=== PATIENT | female | born 1945 | race Caucasian/White ===

== ENCOUNTER 2017-01-10 13:06 | Inpatient (IN) | payer MEDICARE, OTHER ==
[2017-01-10] VITALS (7 sets, daily range): BP systolic 130–147; BP diastolic 77–89; PULSE 112–134; RESP 24–29; TEMP 98.2; O2SAT 92–98
[~2017-01-10] VITALS: Ht 149.9 cm; Wt 58.6 kg
[~2017-01-10 13:06] MED LIST: AMLO5TAB96 PO; ENAL5TAB PO; HYDR10TA16 PO; METH10TA PO; NAPR550 PO; NEUR400C PO; OMEP20CA5 PO; POTA10IN2 PO; SIMV20 PO; VENTAER INH; XANA0.5T PO; ZOLO50TA PO; [UNRECOGNIZED DRUG - CODE] PO
--- NOTE | 2017-01-10 13:39 | PD ---
HPI Chief Complaint: SOB Time Seen by Provider: 13:32 Travel History International Travel<30 days: No Contact w/Intl Traveler<30days: No Traveled to known affect area: No History of Present Illness HPI PT IS A HOSPICE PATIENT, SENT IN DUE TO SOB, NORMALLY ON 2L NC AT HOME. DENIED ANY PROD SPUTUM BUT WAS POSITIVE FOR COUGH, TROUBLE BREATHING SO HEAVY OVER LAST 2 DAYS THAT SHE CAN'T EVEN HOLD A CONVERSATION WITHOUT BEING SOB PFSH Past Medical History Arthritis: Yes Blood Disorders: No Anxiety: Yes Depression: Yes Cancer: No High Cholesterol: Yes Endocrine: No Genitourinary: No Hiatal Hernia: Yes Hypertension: Yes Immune Disorder: No Musculoskeletal: Yes (CHRONIC L HIP PAIN) Neurologic: No Respiratory: Yes (PNEUMONIA) Pneumonia: Yes Menopausal: Yes Past Surgical History Abdominal Surgery: Yes (tumor removal) AICD: No Gynecologic Surgery: Yes (hysterectomy) Hysterectomy: Yes Joint Replacement: No Pacemaker: No Social History Alcohol Use: No Tobacco Use: Yes (06/22 PPD) Substance Use: No Allergies-Medications (Allergen,Severity, Reaction): Coded Allergies: Penicillin (Verified Allergy, Severe, 01/10/17) Quinine (Verified Allergy, Severe, ITCHING, 01/10/17) Ultram (Verified Allergy, Severe, Rash, 01/10/17) Reported Meds & Prescriptions Reported Meds & Active Scripts Active Reported Prednisone 10 Mg Tab 10 Mg PO TID Temazepam 15 Mg Cap 15 Mg PO HS PRN Sertraline (Sertraline HCl) 50 Mg Tab 50 Mg PO DAILY Senna-Tabs (Sennosides) 8.6 Mg Tab 8.6 Mg PO BID Risperidone 0.5 Mg Tab 0.5 Mg PO Q12HR Hydrocodone-Acetaminophen 10-325 mg Tab 1 Tab PO Q6H PRN Gabapentin 300 Mg Cap 300 Mg PO TID Furosemide 20 Mg Tab 20 Mg PO DAILY Flexeril (Cyclobenzaprine HCl) 10 Mg Tab 10 Mg PO TID Amlodipine (Amlodipine Besylate) 5 Mg Tab 5 Mg PO DAILY Alprazolam 1 Mg Tab 1 Mg PO Q8H PRN Ventolin Hfa 18 GM Inh (Albuterol Sulfate) 90 Mcg/Act Aer 2 Puff INH Q6H PRN Albuterol Neb (Albuterol Sulfate) 2.5 Mg/3 Ml Neb 2.5 Mg NEB Q4HR NEB While awake Review of Systems Except as stated in HPI: all other systems reviewed are Neg Respiratory: Positive: Cough, Shortness of Breath Physical Exam Exam Limitations: Clinical Condition Narrative GENERAL: SKIN: Warm and dry. HEAD: Atraumatic. Normocephalic. EYES: Pupils equal and round. No scleral icterus. No injection or drainage. ENT: No nasal bleeding or discharge. Mucous membranes pink and moist. NECK: Trachea midline. No JVD. CARDIOVASCULAR: TACHYCARDIC WITH REGULAR RHYTHM RESPIRATORY: ACCESSORY MUSCLE USE, TACHYPNEIC, WHEEZING, DECREASED TV, GASTROINTESTINAL: Abdomen soft, non-tender, nondistended. Hepatic and splenic margins not palpable. MUSCULOSKELETAL: Extremities without clubbing, cyanosis, or edema. No obvious deformities. NEUROLOGICAL: Awake and alert. No obvious cranial nerve deficits. Motor grossly within normal limits. Five out of 5 muscle strength in the arms and legs. Normal speech. PSYCHIATRIC: Appropriate mood and affect; insight and judgment normal. Data Data Last Documented VS Vital Signs Date Time Temp Pulse Resp B/P Pulse Ox O2 Delivery O2 Flow Rate FiO2 01/10/17 15:32 128 29 135/84 95 Nasal Cannula 5 01/10/17 13:24 98.2 Orders Complete Blood Count With Diff (01/10/17 13:33) Comprehensive Metabolic Panel (01/10/17 13:33) B-Type Natriuretic Peptide (01/10/17 13:33) Act Partial Throm Time (Ptt) (01/10/17 13:33) Prothrombin Time / Inr (Pt) (01/10/17 13:33) Ckmb (Isoenzyme) Profile (01/10/17 13:33) Troponin I (01/10/17 13:33) Urinalysis - C+S If Indicated (01/10/17 13:33) Influenzae A/B Antigen (01/10/17 13:33) Blood Culture (01/10/17 13:33) Iv Access Insert/Monitor (01/10/17 13:33) Electrocardiogram (01/10/17 13:33) Ecg Monitoring (01/10/17 13:33) Oximetry (01/10/17 13:33) Oxygen Administration (01/10/17 13:33) Chest, Single Ap (01/10/17 13:33) Sodium Chloride 0.9% Flush (Ns Flush) (01/10/17 13:45) Methylprednisolone So Succ Inj (Solumedr (01/10/17 13:45) Albuterol Neb (Albuterol Neb) (01/10/17 13:45) Magnesium Sulfate 1 Gm Premix (Magnesium (01/10/17 13:45) Azithromycin Inj (Zithromax Inj) (01/10/17 13:45) Arterial Blood Gas (Abg) (01/10/17 14:13) Levofloxacin 500 Mg Premix Inj (Levaquin (01/10/17 15:15) Admit Order (Ed Use Only) (01/10/17 15:45) Labs Laboratory Tests Test 01/10/17 01/10/17 13:50 14:18 White Blood Count 23.1 TH/MM3 Red Blood Count 4.65 MIL/MM3 Hemoglobin 12.3 GM/DL Hematocrit 38.9 % Mean Corpuscular Volume 83.6 FL Mean Corpuscular Hemoglobin 26.4 PG Mean Corpuscular Hemoglobin 31.7 % Concent Red Cell Distribution Width 18.4 % Platelet Count 253 TH/MM3 Mean Platelet Volume 7.4 FL Neutrophils (%) (Auto) 90.4 % Lymphocytes (%) (Auto) 4.3 % Monocytes (%) (Auto) 5.1 % Eosinophils (%) (Auto) 0.0 % Basophils (%) (Auto) 0.2 % Neutrophils # (Auto) 20.8 TH/MM3 Lymphocytes # (Auto) 1.0 TH/MM3 Monocytes # (Auto) 1.2 TH/MM3 Eosinophils # (Auto) 0.0 TH/MM3 Basophils # (Auto) 0.0 TH/MM3 CBC Comment AUTO DIFF Differential Total Cells 100 Counted Neutrophils % (Manual) 81 % Band Neutrophils % 8 % Lymphocytes % 2 % Monocytes % 7 % Neutrophils # (Manual) 21.0 TH/MM3 Metamyelocytes 2 % Differential Comment FINAL DIFF MANUAL Dohle Bodies PRESENT Platelet Estimate NORMAL Platelet Morphology Comment NORMAL Ovalocytes 1+ Prothrombin Time 10.4 SEC Prothromb Time International 0.9 RATIO Ratio Activated Partial 20.3 SEC Thromboplast Time Sodium Level 141 MEQ/L Potassium Level 4.1 MEQ/L Chloride Level 104 MEQ/L Carbon Dioxide Level 23.9 MEQ/L Anion Gap 13 MEQ/L Blood Urea Nitrogen 44 MG/DL Creatinine 1.24 MG/DL Estimat Glomerular Filtration 43 ML/MIN Rate Random Glucose 88 MG/DL Calcium Level 8.9 MG/DL Total Bilirubin 0.6 MG/DL Aspartate Amino Transf 34 U/L (AST/SGOT) Alanine Aminotransferase 26 U/L (ALT/SGPT) Alkaline Phosphatase 79 U/L Total Creatine Kinase 57 U/L Troponin I 0.02 NG/ML B-Type Natriuretic Peptide 40 PG/ML Total Protein 7.5 GM/DL Albumin 3.2 GM/DL Blood Gas Puncture Site RT RADIAL Blood Gas Patient Temperature 98.6 Blood Gas HCO3 25 mmol/L Blood Gas Base Excess 1.8 mmol/L Blood Gas Oxygen Saturation 92 % Arterial Blood pH 7.47 Arterial Blood Partial 35 mmHg Pressure CO2 Arterial Blood Partial 67 mmHG Pressure O2 Arterial Blood Oxygen Content 16.0 Vol % Arterial Blood 1.6 % Carboxyhemoglobin Arterial Blood Methemoglobin 1.1 % Blood Gas Hemoglobin 12.3 G/DL Oxygen Delivery Device NASAL CANNULA Blood Gas Liter Flow 4 L/M MDM Medical Decision Making Medical Screen Exam Complete: Yes Emergency Medical Condition: Yes Medical Record Reviewed: Yes Interpretation(s) SINUS TACH 135, J POINT ELEVATION, T WAVE INVERSION ON I/AVL....AB.47/35/ 67 ON 4LITERS Differential Diagnosis CHF V ATYPICAL NONSTEMI V PULM EDEMA V PNA V COPD Narrative Course PATIENT IN GREAT RESP DISTRESS, FOUND TO BE IN HYPOXEMIC FAILURE ALONG WITH COPD EXACERBATION AND ON CXR E/O PNEUMONIA...PATIENT WAS IMMEDIATELY INITIATED ON BIPAP, HOURLONG NEBS, STEROID AND PROMPT IV ABX LEVAQUIN/AZITHROMYCIN PATIENT COMES FROM HOME (NO FAMILY INITIALLY AT BEDSIDE TO ASCERTAIN HCAP POSSIBILITY). CONTINUED REEVALUATION NOTED TACHYCARDIA IMPROVING, AND DECREASING, PATIENT BECOMING MORE CALM AND ABLE TO SPEAK MORE THAN 0-1 WORD DYSPNEA SHE HAD PRESENTED. ABG REVEALS HYPOXEMIA DESPITE SUPPLEMENTAL OXYGEN OF 4L (PER PT SHE IS ON 2L AT HOME). PATIENT IS A DNR AND HOSPICE PATIENT..HER WISHES WERE ALWAYS KEPT IN MIND DURING THIS ENTIRE APPROACH, PT AGREES TO BE ADMIT FOR FURTHER CARE Critical Care Narrative CRITICAL CARE NOTE: With evaluation of the patient, labs, EKG, receipt of radiologic studies, administration of medications, reevaluation the patient and discussion of the patient with the admitting physicians, the total critical care time was [80] minutes. Time to perform other separately billable procedures was not included in the critical care time. Sepsis Criteria SIRS Criteria (2 or more): Heart rate over 90, RR > 20 or PaCO2 < 32, WBC > 22371, < 4000 or > 10% bands Severe Sepsis (+one): Organ Dysfunction (PULMONARY FAILURE REQUIRING BIPAP) Diagnosis Primary Impression: ACUTE RESPIRATORY HYPOXEMIC FAILURE Additional Impressions: COPD exacerbation PNEUMONIA WITH SEVERE SEPSIS Admitting Information Admitting Physician Requests: Admit Jaziel Looney MD Jan 10, 2017 13:39
[2017-01-10] MEDS: RESP: ALBUTEROL 2.5 MG/3 ML NEB (SCH) INH ×2 (13:44→13:45)
[2017-01-10] MEDS ORDERED: methylPREDNISolone SOD SUCC 125 MG/2 ML VIAL IVP ONE (13:45)
[2017-01-10] MEDS ORDERED: SODIUM CHLORIDE 0.9% FLUSH 10 ML FLUSH IVF PRN (13:45)
[2017-01-10] MEDS ORDERED: MAGNESIUM SULFATE 1 GM PREMIX 100 ML IV ONE (13:45)
[2017-01-10] MEDS ORDERED: AZITHROMYCIN INJ 500 MG in SODIUM CHLOR 0.9% 250 ML INJ 250 ML IV ONE (13:45)
--- NOTE | 2017-01-10 14:12 | RADRPT ---
EXAM DATE/TIME: 01/10/2017 13:49 [facility] COMPARISON: No previous studies available for comparison. INDICATIONS : Short of breath. MEDICAL HISTORY : Congestive heart failure. Chronic obstructive pulmonary disease. Hypertension. SURGICAL HISTORY : None. ENCOUNTER: Initial ACUITY: 1 day PAIN SCORE: 0/10 LOCATION: Bilateral chest FINDINGS: A single portable frontal view the chest shows the patient obliqued towards the right. Bibasilar pulm onary infiltrates are seen which are intraalveolar in nature. No discrete effusions. Heart is normal in size. A high riding humeral head as seen on the right. CONCLUSION: Bibasilar infiltrates. Jozef Smith Jr., MD on January 10, 2017 at 14:09 Board Certified Radiologist. This report was verified electronically.
[2017-01-10 14:17] LABS: AUTOMATED NEUTROPHIL # 20.8 TH/MM3 (1.8-7.7); BASOPHIL % 0.2 % (0.0-2.0); HEMATOCRIT 38.9 % (35.0-46.0); LYMPH % 4.3 % (9.0-44.0); MEAN CELL VOLUME 83.6 FL (80.0-100.0); MEAN CORPUSCULAR HEMOGLOBIN 26.4 PG (27.0-34.0); MEAN CORPUSCULAR HGB CONC 31.7 % (32.0-36.0); MONO % 5.1 % (0.0-8.0); NEUT % 90.4 % (16.0-70.0); PLATELET COUNT 253 TH/MM3 (150-450); RED BLOOD COUNT 4.65 MIL/MM3 (4.00-5.30); RED CELL DISTRIBUTION WIDTH 18.4 % (11.6-17.2); WHITE BLOOD COUNT 23.1 TH/MM3 (4.0-11.0)
[2017-01-10 14:24] LABS: BLOOD GAS BASE EXCESS 1.8 mmol/L (-2-2); BLOOD GAS CARBOXYHEMOGLOBIN 1.6 % (0-4); BLOOD GAS HCO3 25 mmol/L (22-26); BLOOD GAS METHEMOGLOBIN 1.1 % (0-2); BLOOD GAS O2 HGB SATURATION 92 % (90-100); BLOOD GAS PCO2 35 mmHg (38-42); BLOOD GAS PO2 67 mmHG (61-120); BLOOD GAS TOTAL HGB 12.3 G/DL (12.0-16.0); TEMP CORR TO 98.6
[2017-01-10 14:25] LABS: CRITICAL VALUE YES; DRAW SITE RT RADIAL; LITER FLOW 4 L/M; NUMBER OF ARTERIAL PUNCTURES 1; OXYGEN DEVICE NASAL CANNULA; STAT YES; ULNAR PULSE Y
[2017-01-10 14:25] LABS: APTT (PATIENT) 20.3 SEC (24.3-30.1); INTERNATIONAL NORMALIZED RATIO 0.9 RATIO; PROTHROMBIN TIME - PATIENT 10.4 SEC (9.8-11.6)
[2017-01-10 14:30] LABS: ALT (GPT) 26 U/L (10-53); ANION GAP 13 MEQ/L (5-15); AST (GOT) 34 U/L (15-37); BICARBONATE 23.9 MEQ/L (21.0-32.0); BLOOD UREA NITROGEN 44 MG/DL (7-18); CHLORIDE 104 MEQ/L (98-107); GLOMERULAR FILTRATION RATE 43 ML/MIN (>89); SODIUM (NA) 141 MEQ/L (136-145)
[2017-01-10 14:33] LABS: ALKALINE PHOSPHATASE 79 U/L (45-117); HEMO FLAGS AUTO DIFF; POTASSIUM 4.1 MEQ/L (3.5-5.1); TOTAL BILIRUBIN ADULT 0.6 MG/DL (0.2-1.0)
[2017-01-10 14:38] LABS: CREATINE KINASE 57 U/L (26-192)
[2017-01-10] MEDS ORDERED: ALPR1TAB3 PO (14:38)
[2017-01-10] MEDS ORDERED: VENTAER INH (14:38)
[2017-01-10] MEDS ORDERED: ALBU0.08 NEB (14:38)
[2017-01-10] MEDS ORDERED: AMLO5TAB2 PO (14:38)
[2017-01-10] MEDS ORDERED: CYCL1TAB29 PO (14:40)
[2017-01-10] MEDS ORDERED: HYDR-3583 PO (14:44)
[2017-01-10] MEDS ORDERED: GABA300C5 PO (14:44)
[2017-01-10] MEDS ORDERED: FURO20TA PO (14:44)
[2017-01-10] MEDS ORDERED: SENN8.6T36 PO (14:44)
[2017-01-10] MEDS ORDERED: RISP0.5T2 PO (14:44)
[2017-01-10] MEDS ORDERED: TEMA15CA PO (14:45)
[2017-01-10] MEDS ORDERED: SERT-132 PO (14:45)
[2017-01-10] MEDS ORDERED: PRED10 PO (14:45)
[2017-01-10 15:15] LABS: BANDS 8 % (0-6); METAMYELOCYTES 2 % (0-1); POLYS (SEG NEUTROPHILS) 81 % (16-70); WBC DIFF SAMPLE 100
[2017-01-10] MEDS ORDERED: LEVOFLOXACIN 500 MG PREMIX INJ 100 ML IV ONE (15:15)
[2017-01-10 15:16] LABS: OVALOCYTES 1+ (NORMAL)
[2017-01-10 15:17] LABS: DOHLE BODIES PRESENT (NONE SEEN); PLATELET ESTIMATE SMEAR NORMAL (NORMAL); PLATELET MORPHOLOGY NORMAL (NORMAL); SCAN/DIFF FINAL DIFF MANUAL
--- NOTE | 2017-01-10 15:44 | HHI.HP ---
HPI Service Family Medicine Primary Care Physician Unknown Admission Diagnosis Diagnoses: International Travel<30 Days: No Contact w/Intl Traveler<30days: No Known Affected Area: No History of Present Illness Jessica Hendrickson is a very pleasant 71 year old woman with PMH significant for COPD on 3LPM home O2, anxiety, depression, HTN who was brought to the ED after her family members called 911 earlier today after noticing her to have increased work of breathing. History provided primarily by the patients family members. They state the patient was admitted to [facility] about a month ago and treated for pneumonia for about two to three days in the hospital and discharged with oral antibiotics. Jessica had been doing ok until about 3-4 days ago when she started developing some shortness of breath when walking and a wet cough worse at night sometimes productive of white phlegm. Patient denies any recent fevers or chills but does endorse mild night sweats. Her family members state she is ambulatory at home with the use of a walker only. Patient denies CP , abdominal pain, lower extremity edema, or decrease in UOP. (Filiberto Hernandez MD R1) Review of Systems Constitutional: COMPLAINS OF: Night Sweats, DENIES: Fever, Chills Respiratory: COMPLAINS OF: Cough, Sputum production, Shortness of breath Cardiovascular: DENIES: Chest pain, Lower Extremity Edema Gastrointestinal: DENIES: Abdominal pain, Black stools, Bloody stools, Constipation, Diarrhea Genitourinary: DENIES: Hematuria, Dysuria Psychiatric: COMPLAINS OF: Anxiety (Filiberto Hernandez MD R1) Past Family Social History Past Medical History COPD on 3 LPM home O2 Anxiety/Depression HTN Per EMR, h/o chronic pain Past Surgical History Bilateral rotator cuff surgery Hysterectomy Reported Medications Reported Meds & Active Scripts Active Reported Prednisone 10 Mg Tab 10 Mg PO TID Temazepam 15 Mg Cap 15 Mg PO HS PRN Sertraline (Sertraline HCl) 50 Mg Tab 50 Mg PO DAILY Senna-Tabs (Sennosides) 8.6 Mg Tab 8.6 Mg PO BID Risperidone 0.5 Mg Tab 0.5 Mg PO Q12HR Hydrocodone-Acetaminophen 10-325 mg Tab 1 Tab PO Q6H PRN Gabapentin 300 Mg Cap 300 Mg PO TID Furosemide 20 Mg Tab 20 Mg PO DAILY Flexeril (Cyclobenzaprine HCl) 10 Mg Tab 10 Mg PO TID Amlodipine (Amlodipine Besylate) 5 Mg Tab 5 Mg PO DAILY Alprazolam 1 Mg Tab 1 Mg PO Q8H PRN Ventolin Hfa 18 GM Inh (Albuterol Sulfate) 90 Mcg/Act Aer 2 Puff INH Q6H PRN Albuterol Neb (Albuterol Sulfate) 2.5 Mg/3 Ml Neb 2.5 Mg NEB Q4HR NEB While awake (Filiberto Hernandez MD R1) Allergies: Coded Allergies: Penicillin (Verified Allergy, Severe, 01/10/17) Quinine (Verified Allergy, Severe, ITCHING, 01/10/17) Ultram (Verified Allergy, Severe, Rash, 01/10/17) Family History Noncontributory Social History Lives at home with 2 family members Tobacco: at least 1/4 PPD Etoh: denies (Filiberto Hernandez MD R1) Physical Exam Vital Signs Vital Signs Date Time Temp Pulse Resp B/P Pulse Ox O2 Delivery O2 Flow Rate FiO2 01/10/17 15:32 128 29 135/84 95 Nasal Cannula 5 01/10/17 13:45 93 Nasal Cannula 3.00 01/10/17 13:41 93 Nasal Cannula 4 01/10/17 13:40 93 Nasal Cannula 4 01/10/17 13:24 98.2 134 28 137/77 93 Physical Exam GENERAL: NAD, lying comfortably in bed, no increased work of breathing NEURO: AOx3. Speech soft but not slurred. barrel cooper grossly intact. Motor grossly normal. SKIN: Warm and dry. Scattered ecchymoses primarily left distal arm. HEAD: Normocephalic. Atraumatic. EYES: PERRL. EOMI. No scleral icterus. No injection or drainage. ENT: No nasal drainage. Moist mucous membranes. NECK: Supple, trachea midline. No JVD or lymphadenopathy. CARDIOVASCULAR: Tachycardic rate, regular rhythm without murmurs, rubs, or gallops. Peripheral pulses 2+. Capillary refill < 2 seconds. RESPIRATORY: Harsh sounding bibasilar rales. Faint expiratory wheezing throughout. Breath sounds equal. No accessory muscle use. GASTROINTESTINAL: Abdomen soft, nontender, protuberant, normal BS. No organomegaly or masses. No rebound tenderness. No guarding. MUSCULOSKELETAL: No lower extremity edema. Normal range of motion. 2nd and 3rd toes deviated laterally over 4th toe. BACK: Nontender without obvious deformity. Laboratory Laboratory Tests Test 01/10/17 01/10/17 13:50 14:18 White Blood Count 23.1 Red Blood Count 4.65 Hemoglobin 12.3 Hematocrit 38.9 Mean Corpuscular Volume 83.6 Mean Corpuscular Hemoglobin 26.4 Mean Corpuscular Hemoglobin 31.7 Concent Red Cell Distribution Width 18.4 Platelet Count 253 Mean Platelet Volume 7.4 Neutrophils (%) (Auto) 90.4 Lymphocytes (%) (Auto) 4.3 Monocytes (%) (Auto) 5.1 Eosinophils (%) (Auto) 0.0 Basophils (%) (Auto) 0.2 Neutrophils # (Auto) 20.8 Lymphocytes # (Auto) 1.0 Monocytes # (Auto) 1.2 Eosinophils # (Auto) 0.0 Basophils # (Auto) 0.0 CBC Comment AUTO DIFF Differential Total Cells 100 Counted Neutrophils % (Manual) 81 Band Neutrophils % 8 Lymphocytes % 2 Monocytes % 7 Neutrophils # (Manual) 21.0 Metamyelocytes 2 Differential Comment FINAL DIFF MANUAL Dohle Bodies PRESENT Platelet Estimate NORMAL Platelet Morphology Comment NORMAL Ovalocytes 1+ Prothrombin Time 10.4 Prothromb Time International 0.9 Ratio Activated Partial 20.3 Thromboplast Time Sodium Level 141 Potassium Level 4.1 Chloride Level 104 Carbon Dioxide Level 23.9 Anion Gap 13 Blood Urea Nitrogen 44 Creatinine 1.24 Estimat Glomerular Filtration 43 Rate Random Glucose 88 Calcium Level 8.9 Total Bilirubin 0.6 Aspartate Amino Transf 34 (AST/SGOT) Alanine Aminotransferase 26 (ALT/SGPT) Alkaline Phosphatase 79 Total Creatine Kinase 57 Troponin I 0.02 B-Type Natriuretic Peptide 40 Total Protein 7.5 Albumin 3.2 Blood Gas Puncture Site RT RADIAL Blood Gas Patient Temperature 98.6 Blood Gas HCO3 25 Blood Gas Base Excess 1.8 Blood Gas Oxygen Saturation 92 Arterial Blood pH 7.47 Arterial Blood Partial 35 Pressure CO2 Arterial Blood Partial 67 Pressure O2 Arterial Blood Oxygen Content 16.0 Arterial Blood 1.6 Carboxyhemoglobin Arterial Blood Methemoglobin 1.1 Blood Gas Hemoglobin 12.3 Oxygen Delivery Device NASAL CANNULA Blood Gas Liter Flow 4 Date/Time Procedure Status Source Growth 01/10/17 14:25 Influenza Types A,B Antigen (LONNIE) - Final Complete Nasal Washing NEGATIVE FOR FLU A AND B ANTIGEN.... 01/10/17 13:50 Aerobic Blood Culture Received Blood Peripheral Pending 01/10/17 13:50 Anaerobic Blood Culture Received Blood Peripheral Pending (Filiberto Hernandez MD R1) Result Diagram: 01/10/17 1350 01/10/17 1350 Septic Shock Reassessment Heart: Other (Tachycardic rate) Lungs: Crackles Skin: Warm, Dry Peripheral Pulses: Bounding Right Radial Bounding Left Radial Bounding Right Dorsalis Pedis Bounding Left Dorsalis Pedis Bounding Right Posterior Tibial Bounding Left Posterior Tibial Capillary Refill: <2 seconds (Filiberto Hernandez MD R1) Assessment and Plan Assessment and Plan 71 year old female with a h/o of COPD on 3lpm home O2 and recent hospitalization for pneumonia one month ago presents with SOB and cough found to have bibasilar infiltrates on CXR. Patient will be admitted and managed for the following: Code Status OK with intubation and mechanical ventilation Does not want ACLS protocol Discussed Condition With Dr. Maradiaga (Filiberto Hernandez MD R1) Attending Attestation THIS CASE WAS DISCUSSED WITH THE RESIDENT PHYSICIANS. I HAVE REVIEWED THE RECORD AND AGREE WITH THE ABOVE NOTE AND PLAN OF CARE WAS DISCUSSED. I HAVE AUTHORIZED THE ORDER FOR ADMISSION TO AN IN-PATIENT STATUS. (Brayan Duarte MD) Problem List: (1) Sepsis Status: Acute Plan: Meets sepsis criteria on admission due to HCAP Plan as below (2) HCAP (healthcare-associated pneumonia) Status: Acute Plan: - CXR showing bibasilar infiltrates - s/p Levaquin 500 mg IV and azithromycin 500 mg IV in ED - Start Vancomycin, dosing per pharmacy consult for treatment of HCAP - Levaquin 750 mg IV q24h, next dose 01/11 16:00 - Zosyn 4.5 gm IV q6h - Blood cultures pending - Obtain sputum culture if sputum expectorated - Urinary legionella and pneumococcal Ags (3) COPD exacerbation Status: Acute Plan: - ABG on admission showing mild respiratory alkalosis - Repeat VBG at 18:00 - s/p Solumedrol 125 mg IV in ED - Continue Solumedrol 60 mg IV q6h - Duonebs q4h scheduled - Albuterol 2.5 mg nebs q2h prn SOB - Supplemental oxygen as needed to maintain O2 sats between 88-92% - Incentive spirometer to bedside - Consider BiPAP if patient develops worsening SOB or repeat VBG is concerning (4) Acute kidney injury Status: Acute Plan: - Cr 1.24 on admission, last Cr ~0.80 in 2012 - Monitor I/Os - GFR 43, not needing to renally dose Levaquin - Vancomycin dosing per pharmacy, consider alternate antibiotic if Cr uptrends - Monitor I/Os - Trend renal function (5) Anxiety Status: Acute Plan: Xanax 0.5 mg po q8h prn anxiety (6) Nutrition, metabolism, and development symptoms Status: Acute Plan: Fluids: MIVF with NS at 110 cc/hr, consider bolus if patient continues to be tachycardic Electrolytes: WNL, continue to monitor Nutrition: Heart healthy diet DVT ppx: Heparin 5,000 units subq q12h GI ppx: Protonix 40 mg IV daily (Filiberto Hernandez MD R1) Physician Certification 2 Midnight Certification Type: Admission for Inpatient Services Order for Inpatient Services The services are ordered in accordance with Medicare regulations or non- Medicare payer requirements, as applicable. In the case of services not specified as inpatient-only, they are appropriately provided as inpatient services in accordance with the 2-midnight benchmark. Estimated LOS (days): 3 days is the estimated time the patient will need to remain in the hospital, assuming treatment plan goals are met and no additional complications. Post-Hospital Plan: Home (Filiberto Hernandez MD R1) Filiberto Hernandez MD R1 Jan 10, 2017 15:44 Brayan Duarte MD Jan 11, 2017 11:20
[2017-01-10] MEDS ORDERED: VANCOMYCIN INJ 1,050 MG in SODIUM CHLOR 0.9% 250 ML INJ 250 ML IV SCH (16:15)
[2017-01-10] MEDS ORDERED: RESP: ALBUTEROL 2.5 MG/3 ML NEB (PRN) INH (16:15)
[2017-01-10] MEDS ORDERED: Vancomycin Consult Pharmacy 1 EA OTHER SCH (16:15)
[2017-01-10] MEDS ORDERED: NALOXONE HCL 0.4 MG/ML AMP IV PRN (16:15)
--- NOTE | 2017-01-10 17:03 | EKG ---
Date Performed: 01/10/2017 Time Performed: 13:30:07 PTAGE: 71 years EKG: SINUS TACHYCARDIA ST DEVIATION AND MODERATE T-WAVE ABNORMALITY ABNORMAL ECG Compared to the PREVIOUS TRACING rate faster DOCTOR: Tommie Watson Interpretating Date/Time 01/10/2017 17:03:09
[2017-01-10 18:08] LABS: BACTERIA, URINE RARE /hpf; BLOOD, URINE MOD (NEG); COMMENT (UR) CULT NOT INDICATED; CULTURE IF INDICATED CULT NOT INDICATED; GLUCOSE,URINE NEG (NEG); KETONE, URINE NEG (NEG); NITRITE,URINE NEG (NEG); SQUAMOUS EPITHELIAL CELL URINE <1 /hpf (0-5); URINE COLOR YELLOW (YELLW/STRAW)
[2017-01-10] MEDS ORDERED: VANCOMYCIN 1,000 MG/NS 250 ML IV ONE ×2 (19:00)
[2017-01-10] MEDS: SODIUM CHLOR 0.9% 1000 ML INJ 1,000 ML IV SCH (19:07)
[2017-01-10] MEDS: HEPARIN SODIUM - SQ 10,000 UNITS/ML VIAL SQ SCH (19:08)
[2017-01-10] MEDS: PIPERACIL-TAZO 3.375 GM PREMIX 50 ML IV SCH (19:08)
[2017-01-10] MEDS: methylPREDNISolone SOD SUCC 125 MG/2 ML VIAL IVP SCH (20:00)
[2017-01-10] MEDS: ALPRAZolam 0.5 MG TAB PO PRN (20:33)
[2017-01-10] MEDS: SODIUM CHLORIDE 0.9% FLUSH 10 ML FLUSH IV FLUSH SCH (21:00)
[2017-01-10] MEDS: RESP: ALBUTEROL 2.5 MG/IPRATROPIUM 0.5 MG NEB (SCH) INH (21:27)
[2017-01-11] VITALS (13 sets, daily range): BP systolic 138–168; BP diastolic 70–89; PULSE 108–118; RESP 18–28; TEMP 96.9–99.1; O2SAT 94–100
[2017-01-11 00:07] LABS: LACTIC ACID GHOST NOT REPORTABLE
[2017-01-11] MEDS: PANTOPRAZOLE SODIUM 40 MG VIAL IV PUSH SCH ×2 (00:25→20:39)
[2017-01-11] MEDS: RESP: ALBUTEROL 2.5 MG/IPRATROPIUM 0.5 MG NEB (SCH) INH ×7 (00:38→23:35)
[2017-01-11] MEDS: PIPERACIL-TAZO 3.375 GM PREMIX 50 ML IV SCH ×4 (02:12→23:05)
[2017-01-11] MEDS: methylPREDNISolone SOD SUCC 125 MG/2 ML VIAL IVP SCH ×4 (02:48→20:39)
[2017-01-11] MEDS: SODIUM CHLOR 0.9% 1000 ML INJ 1,000 ML IV SCH ×3 (02:56→19:29)
[2017-01-11] MEDS: HEPARIN SODIUM - SQ 10,000 UNITS/ML VIAL SQ SCH ×2 (07:08→19:30)
[2017-01-11 07:51] LABS: AUTOMATED NEUTROPHIL # 18.5 TH/MM3 (1.8-7.7); BASOPHIL % 0.1 % (0.0-2.0); HEMATOCRIT 33.4 % (35.0-46.0); LYMPH % 3.1 % (9.0-44.0); LYMPHOCYTE # 0.6 TH/MM3 (1.0-4.8); MEAN CELL VOLUME 83.4 FL (80.0-100.0); MEAN CORPUSCULAR HEMOGLOBIN 25.9 PG (27.0-34.0); MEAN CORPUSCULAR HGB CONC 31.1 % (32.0-36.0); MONO % 2.8 % (0.0-8.0); PLATELET COUNT 210 TH/MM3 (150-450); RED BLOOD COUNT 4.01 MIL/MM3 (4.00-5.30); RED CELL DISTRIBUTION WIDTH 18.2 % (11.6-17.2); WHITE BLOOD COUNT 19.7 TH/MM3 (4.0-11.0)
[2017-01-11 07:56] LABS: HEMO FLAGS AUTO DIFF
[2017-01-11 08:35] LABS: ALKALINE PHOSPHATASE 58 U/L (45-117); ALT (GPT) 20 U/L (10-53); ANION GAP 8 MEQ/L (5-15); AST (GOT) 11 U/L (15-37); BICARBONATE 27.4 MEQ/L (21.0-32.0); BLOOD UREA NITROGEN 35 MG/DL (7-18); CHLORIDE 107 MEQ/L (98-107); GLOMERULAR FILTRATION RATE 51 ML/MIN (>89); POTASSIUM 3.1 MEQ/L (3.5-5.1); SODIUM (NA) 142 MEQ/L (136-145); TOTAL BILIRUBIN ADULT 0.8 MG/DL (0.2-1.0)
[2017-01-11 08:54] LABS: BANDS 6 % (0-6); NEUTROPHIL # MANUAL DIFF 19.1 TH/MM3 (1.8-7.7); POLYS (SEG NEUTROPHILS) 91 % (16-70); WBC DIFF SAMPLE 100
[2017-01-11 08:55] LABS: OVALOCYTES 1+ (NORMAL); PLATELET ESTIMATE SMEAR NORMAL (NORMAL); PLATELET MORPHOLOGY NORMAL (NORMAL); SCAN/DIFF FINAL DIFF MANUAL
[2017-01-11] MEDS: ACETAMINOPHEN/HYDROcodone 325 MG/10 MG TAB PO SCH ×3 (10:04→23:05)
[2017-01-11] MEDS: SODIUM CHLORIDE 0.9% FLUSH 10 ML FLUSH IV FLUSH SCH ×2 (10:05→20:39)
--- NOTE | 2017-01-11 11:19 | HHI.HP ---
HPI Service Family Medicine Primary Care Physician Unknown Admission Diagnosis Diagnoses: (1) Sepsis (2) HCAP (healthcare-associated pneumonia) (3) COPD exacerbation (4) Acute kidney injury (5) Anxiety (6) Nutrition, metabolism, and development symptoms International Travel<30 Days: No Contact w/Intl Traveler<30days: No Known Affected Area: No History of Present Illness Patient is complaining of diffuse pain, most notably in her head this morning. She also complains of some pain in her left groin/inguinal area that has been present for a prolonged period of time. She still feels that her breathing is "crappy" but has slightly improved from presentation to the hospital. She denies any fevers or chills. She denies any increase in cough or sputum production. She denies any nausea or vomiting. She denies any chest pain or palpitations. In summary this is a 71-year-old female who is presently in hospice for COPD who presented with a COPD exacerbation. She is chronically on 3 L nasal cannula at home but has recently been more short of breath and having increased work of breathing. She has required an increase of her home oxygen up to 5 L and still feel short of breath. This has been going on for 3-4 days and has been associated with a productive cough of white phlegm. Review of Systems Constitutional: DENIES: Fever, Chills Eyes: DENIES: Blurred vision Respiratory: COMPLAINS OF: Cough, Wheezing, Sputum production, Shortness of breath, DENIES: Hemoptysis Cardiovascular: DENIES: Chest pain, Palpitations, Syncope Gastrointestinal: DENIES: Abdominal pain, Black stools, Bloody stools, Constipation, Diarrhea, Nausea, Vomiting Musculoskeletal: COMPLAINS OF: Joint pain, Muscle aches, Back pain, Neck pain Past Family Social History Past Medical History COPD on 3 LPM home O2 Anxiety/Depression HTN Per EMR, h/o chronic pain Past Surgical History Bilateral rotator cuff surgery Hysterectomy Allergies: Coded Allergies: Penicillin (Verified Allergy, Severe, 01/10/17) Quinine (Verified Allergy, Severe, ITCHING, 01/10/17) Ultram (Verified Allergy, Severe, Rash, 01/10/17) Family History Noncontributory Social History Lives at home with 2 family members Tobacco: at least 1/4 PPD Etoh: denies Physical Exam Vital Signs Vital Signs Date Time Temp Pulse Resp B/P Pulse Ox O2 Delivery O2 Flow Rate FiO2 01/11/17 08:25 100 Nasal Cannula 4.00 01/11/17 08:00 98.0 118 28 154/89 94 01/11/17 04:00 96.9 113 18 138/80 94 01/11/17 02:13 112 20 142/88 94 Nasal Cannula 2 01/11/17 01:00 110 22 168/76 94 4 01/11/17 00:00 108 25 153/86 98 01/10/17 23:00 112 24 147/89 96 01/10/17 21:29 98 Nasal Cannula 4.00 01/10/17 20:34 117 24 130/84 92 Nasal Cannula 5 01/10/17 15:32 128 29 135/84 95 Nasal Cannula 5 01/10/17 13:45 93 Nasal Cannula 3.00 01/10/17 13:41 93 Nasal Cannula 4 01/10/17 13:40 93 Nasal Cannula 4 01/10/17 13:24 98.2 134 28 137/77 93 Physical Exam GENERAL: Elderly female, lying in bed in moderate discomfort. She is tremulous this morning NEURO: AOx3. Speech soft but not slurred. 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 Motor grossly normal. SKIN: Warm and dry. Scattered ecchymoses primarily left distal arm. Groin/ inguinal area is erythematous without ulceration or open wounds. No warmth or drainage of the area. EYES: PERRL. EOMI. No scleral icterus. No injection or drainage. CARDIOVASCULAR: Tachycardic rate, regular rhythm without murmurs, rubs, or gallops. RESPIRATORY: Bibasilar rhonchi with scattered expiratory wheezing. Moderate air exchange. Extended expiratory phase. No accessory muscle use GASTROINTESTINAL: Abdomen soft, nontender, protuberant, normal BS. No rebound tenderness. No guarding. MUSCULOSKELETAL: No lower extremity edema. Laboratory Laboratory Tests Test 01/10/17 01/10/17 01/10/17 01/10/17 13:50 14:18 17:40 21:40 White Blood Count 23.1 Red Blood Count 4.65 Hemoglobin 12.3 Hematocrit 38.9 Mean Corpuscular Volume 83.6 Mean Corpuscular Hemoglobin 26.4 Mean Corpuscular Hemoglobin 31.7 Concent Red Cell Distribution Width 18.4 Platelet Count 253 Mean Platelet Volume 7.4 Neutrophils (%) (Auto) 90.4 Lymphocytes (%) (Auto) 4.3 Monocytes (%) (Auto) 5.1 Eosinophils (%) (Auto) 0.0 Basophils (%) (Auto) 0.2 Neutrophils # (Auto) 20.8 Lymphocytes # (Auto) 1.0 Monocytes # (Auto) 1.2 Eosinophils # (Auto) 0.0 Basophils # (Auto) 0.0 CBC Comment AUTO DIFF Differential Total Cells 100 Counted Neutrophils % (Manual) 81 Band Neutrophils % 8 Lymphocytes % 2 Monocytes % 7 Neutrophils # (Manual) 21.0 Metamyelocytes 2 Differential Comment FINAL DIFF MANUAL Dohle Bodies PRESENT Platelet Estimate NORMAL Platelet Morphology Comment NORMAL Ovalocytes 1+ Prothrombin Time 10.4 Prothromb Time International 0.9 Ratio Activated Partial 20.3 Thromboplast Time Sodium Level 141 Potassium Level 4.1 Chloride Level 104 Carbon Dioxide Level 23.9 Anion Gap 13 Blood Urea Nitrogen 44 Creatinine 1.24 Estimat Glomerular Filtration 43 Rate Random Glucose 88 Calcium Level 8.9 Total Bilirubin 0.6 Aspartate Amino Transf 34 (AST/SGOT) Alanine Aminotransferase 26 (ALT/SGPT) Alkaline Phosphatase 79 Total Creatine Kinase 57 Troponin I 0.02 0.02 B-Type Natriuretic Peptide 40 Total Protein 7.5 Albumin 3.2 Blood Gas Puncture Site RT RADIAL Blood Gas Patient Temperature 98.6 Blood Gas HCO3 25 Blood Gas Base Excess 1.8 Blood Gas Oxygen Saturation 92 Arterial Blood pH 7.47 Arterial Blood Partial 35 Pressure CO2 Arterial Blood Partial 67 Pressure O2 Arterial Blood Oxygen Content 16.0 Arterial Blood 1.6 Carboxyhemoglobin Arterial Blood Methemoglobin 1.1 Blood Gas Hemoglobin 12.3 Oxygen Delivery Device NASAL CANNULA Blood Gas Liter Flow 4 Urine Color YELLOW Urine Turbidity CLEAR Urine pH 5.0 Urine Specific [place] 1.012 Urine Protein NEG Urine Glucose (UA) NEG Urine Ketones NEG Urine Occult Blood MOD Urine Nitrite NEG Urine Bilirubin NEG Urine Urobilinogen LESS THAN 2.0 Urine Leukocyte Esterase NEG Urine RBC 45 Urine WBC 1 Urine Squamous Epithelial <1 Cells Urine Bacteria RARE Microscopic Urinalysis Comment CULT NOT INDICATED Test 01/10/17 01/11/17 01/11/17 21:43 00:30 07:28 Lactic Acid Level 3.7 3.3 White Blood Count 19.7 Red Blood Count 4.01 Hemoglobin 10.4 Hematocrit 33.4 Mean Corpuscular Volume 83.4 Mean Corpuscular Hemoglobin 25.9 Mean Corpuscular Hemoglobin 31.1 Concent Red Cell Distribution Width 18.2 Platelet Count 210 Mean Platelet Volume 7.1 Neutrophils (%) (Auto) 94.0 Lymphocytes (%) (Auto) 3.1 Monocytes (%) (Auto) 2.8 Eosinophils (%) (Auto) 0.0 Basophils (%) (Auto) 0.1 Neutrophils # (Auto) 18.5 Lymphocytes # (Auto) 0.6 Monocytes # (Auto) 0.6 Eosinophils # (Auto) 0.0 Basophils # (Auto) 0.0 CBC Comment AUTO DIFF Differential Total Cells 100 Counted Neutrophils % (Manual) 91 Band Neutrophils % 6 Lymphocytes % 2 Monocytes % 1 Neutrophils # (Manual) 19.1 Differential Comment FINAL DIFF MANUAL Platelet Estimate NORMAL Platelet Morphology Comment NORMAL Ovalocytes 1+ Sodium Level 142 Potassium Level 3.1 Chloride Level 107 Carbon Dioxide Level 27.4 Anion Gap 8 Blood Urea Nitrogen 35 Creatinine 1.07 Estimat Glomerular Filtration 51 Rate Random Glucose 115 Calcium Level 8.8 Total Bilirubin 0.8 Aspartate Amino Transf 11 (AST/SGOT) Alanine Aminotransferase 20 (ALT/SGPT) Alkaline Phosphatase 58 Total Protein 6.3 Albumin 2.7 Date/Time Procedure Status Source Growth 01/10/17 17:40 Legionella Antigen - Final Complete Urine Random Urine PRESUMPTIVE NEGATIVE FOR LEGIONELLA P... 01/10/17 17:40 Streptococcus pneumoniae Antigen (M - Final Complete Urine Random Urine PRESUMPTIVE NEGATIVE FOR STREPTOCOCCU... 01/10/17 14:25 Influenza Types A,B Antigen (LONNIE) - Final Complete Nasal Washing NEGATIVE FOR FLU A AND B ANTIGEN.... 01/10/17 13:50 Aerobic Blood Culture Received Blood Peripheral Pending 01/10/17 13:50 Anaerobic Blood Culture Received Blood Peripheral Pending Result Diagram: 01/11/1728 01/11/17 0728 Imaging Last 48 hours Impressions Chest X-Ray 01/10/17 1333 Signed Impressions: Service Date/Time: Tuesday, January 10, 2017 13:49 - CONCLUSION: Bibasilar infiltrates. Jozef Smith Jr., MD Septic Shock Reassessment Heart: Regular rate and rhythm Lungs: Course Skin: Warm, Moist, [place] Peripheral Pulses: Bounding Right Radial Bounding Left Radial Capillary Refill: Brisk, <2 seconds Assessment and Plan Assessment and Plan 71 year old female with a h/o of COPD on 3lpm home O2 and recent hospitalization for pneumonia one month ago presents with SOB and cough found to have bibasilar infiltrates on CXR. Patient will be admitted and managed for the following: Problem List: (1) Sepsis Status: Acute Plan: Meets sepsis criteria on admission due to HCAP Plan as below (2) HCAP (healthcare-associated pneumonia) Status: Acute Plan: Recently hospitalized 30 days ago for pneumonia and treated with IV antibiotics - CXR showing bibasilar infiltrates Based on up-to-date recommendations and algorithm patient was started on antibiotics as below - Vancomycin, dosing per pharmacy consult for treatment of HCAP - Levaquin 750 mg IV q24h, next dose 01/11 16:00 - Zosyn 4.5 gm IV q6h - s/p Levaquin 500 mg IV and azithromycin 500 mg IV in ED - Blood cultures pending - Obtain sputum culture if sputum expectorated - Urinary legionella and pneumococcal Ags negative - Scheduled DuoNeb's every 4 hours - Albuterol nebulizers every 2 hours as needed for shortness of breath - Solu-Medrol 60 mg IV every 6 hours - Incentive spirometer to bedside (3) COPD exacerbation Status: Acute Plan: - ABG on admission showing mild respiratory alkalosis DuoNeb every 4 hours scheduled Albuterol nebulizers every 2 hours as needed Solu-Medrol 60 mg IV every 6 hours - Status post generator 125 mg IV in the emergency department Antibiotics as above for HCAP Supplemental oxygen as needed to keep O2 sats between 8892% Incentive spirometer to bedside Consider BiPAP if patient develops worsening SOB (4) Acute kidney injury Status: Acute Plan: - Cr 1.24 on admission - improved to 1.07 today - Monitor I/Os - GFR 43, not needing to renally dose Levaquin - Vancomycin dosing per pharmacy, consider alternate antibiotic if Cr uptrends - Monitor I/Os - Trend renal function (5) Anxiety Status: Acute Plan: Xanax 0.5 mg po q8h prn anxiety (6) Nutrition, metabolism, and development symptoms Status: Acute Plan: Fluids: MIVF with NS at 110 cc/hr, consider bolus if patient continues to be tachycardic Electrolytes: WNL, continue to monitor Nutrition: Heart healthy diet DVT ppx: Heparin 5,000 units subq q12h GI ppx: Protonix 40 mg IV daily Physician Certification 2 Midnight Certification Type: Admission for Inpatient Services Order for Inpatient Services The services are ordered in accordance with Medicare regulations or non- Medicare payer requirements, as applicable. In the case of services not specified as inpatient-only, they are appropriately provided as inpatient services in accordance with the 2-midnight benchmark. Estimated LOS (days): 2 2 days is the estimated time the patient will need to remain in the hospital, assuming treatment plan goals are met and no additional complications. Post-Hospital Plan: Not yet determined Brayan Duarte MD Jan 11, 2017 11:19
[2017-01-11] MEDS: NYSTATIN 100,000 U/GM PWD 15 GM BTL TOPICAL SCH ×2 (11:59→20:39)
[2017-01-11] MEDS: VANCOMYCIN 1,000 MG/NS 250 ML IV SCH ×2 (12:52)
[2017-01-11] MEDS: LEVOFLOXACIN 750 MG PREMIX INJ 150 ML IV SCH (17:14)
[2017-01-12] VITALS (9 sets, daily range): BP systolic 125–166; BP diastolic 75–92; PULSE 110–122; RESP 18–21; TEMP 97.4–99; O2SAT 92–96
[2017-01-12] MEDS: methylPREDNISolone SOD SUCC 125 MG/2 ML VIAL IVP SCH ×4 (03:10→20:12)
[2017-01-12] MEDS: RESP: ALBUTEROL 2.5 MG/IPRATROPIUM 0.5 MG NEB (SCH) INH ×5 (03:54→19:30)
[2017-01-12] MEDS: ACETAMINOPHEN/HYDROcodone 325 MG/10 MG TAB PO SCH ×2 (04:00→08:11)
[2017-01-12] MEDS: HEPARIN SODIUM - SQ 10,000 UNITS/ML VIAL SQ SCH ×2 (04:22→16:12)
[2017-01-12] MEDS: PIPERACIL-TAZO 3.375 GM PREMIX 50 ML IV SCH (04:23)
[2017-01-12] MEDS: SODIUM CHLOR 0.9% 1000 ML INJ 1,000 ML IV SCH ×3 (04:23→22:47)
[2017-01-12] MEDS: VANCOMYCIN 1,000 MG/NS 250 ML IV SCH ×2 (05:56)
[2017-01-12 06:58] LABS: AUTOMATED NEUTROPHIL # 14.9 TH/MM3 (1.8-7.7); BASOPHIL % 0.1 % (0.0-2.0); HEMATOCRIT 33.9 % (35.0-46.0); LYMPH % 4.8 % (9.0-44.0); LYMPHOCYTE # 0.8 TH/MM3 (1.0-4.8); MEAN CELL VOLUME 83.8 FL (80.0-100.0); MEAN CORPUSCULAR HEMOGLOBIN 26.2 PG (27.0-34.0); MEAN CORPUSCULAR HGB CONC 31.2 % (32.0-36.0); MONO % 4.2 % (0.0-8.0); NEUT % 90.9 % (16.0-70.0); PLATELET COUNT 203 TH/MM3 (150-450); RED BLOOD COUNT 4.05 MIL/MM3 (4.00-5.30); RED CELL DISTRIBUTION WIDTH 18.3 % (11.6-17.2); WHITE BLOOD COUNT 16.4 TH/MM3 (4.0-11.0)
[2017-01-12 07:14] LABS: BICARBONATE 23.3 MEQ/L (21.0-32.0); POTASSIUM 3.4 MEQ/L (3.5-5.1)
[2017-01-12 07:19] LABS: HEMO FLAGS AUTO DIFF
[2017-01-12] MEDS: SODIUM CHLORIDE 0.9% FLUSH 10 ML FLUSH IV FLUSH SCH ×2 (08:11→20:12)
[2017-01-12] MEDS: NYSTATIN 100,000 U/GM PWD 15 GM BTL TOPICAL SCH ×2 (08:12→20:13)
[2017-01-12 09:29] LABS: SCAN/DIFF AUTO DIFF CONFIRMED
--- NOTE | 2017-01-12 10:05 | HHI.FPPN ---
Subjective Remarks No acute events overnight. Patient states she is breathing comfortably this morning. Denies fevers, does endorse some chills overnight. Denies chest pain or SOB. Intermittent cough, she states recently she has been unable to have a productive cough. (Filiberto Hernandez MD R1) Objective Vitals Vital Signs Date Time Temp Pulse Resp B/P Pulse Ox O2 Delivery O2 Flow Rate FiO2 01/12/17 08:00 98.4 115 18 138/88 95 01/12/17 07:48 94 Nasal Cannula 3.00 01/12/17 04:00 98.3 110 20 137/87 92 01/12/17 00:00 97.4 112 20 166/75 94 01/11/17 23:38 97 Nasal Cannula 3.00 01/11/17 21:50 113 01/11/17 20:35 98.3 117 22 142/70 95 01/11/17 20:28 96 Nasal Cannula 3.00 01/11/17 20:00 99.1 114 18 143/76 96 01/11/17 16:24 96 Nasal Cannula 2.50 01/11/17 13:00 99.1 115 18 148/86 96 I/O 01/11/17 01/11/17 01/11/17 01/12/17 01/12/17 01/12/17 06:59 14:59 22:59 06:59 14:59 22:59 Intake Total 240 ml 904 ml 661 ml 902 ml Balance 240 ml 904 ml 661 ml 902 ml Intake Oral 240 ml 244 ml 120 ml 240 ml IV Total 660 ml 541 ml 662 ml # Voids 1 4 1 2 # Bowel Movements 1 4 1 2 (Filiberto Hernandez MD R1) Result Diagram: 01/12/17 0601/12/17 06 Objective Remarks GENERAL: Elderly female, lying in bed in mild discomfort. Remains a little tremulous this morning NEURO: AOx3. Speech soft but not slurred. reservoir engineer grossly intact. Motor grossly normal. SKIN: Warm and dry. Scattered ecchymoses primarily left distal arm. CARDIOVASCULAR: Tachycardic rate, regular rhythm without murmurs, rubs, or gallops. RESPIRATORY: Bibasilar rhonchi with scattered expiratory wheezing. Moderate air exchange. No accessory muscle use GASTROINTESTINAL: Abdomen soft, nontender, nondistended MUSCULOSKELETAL: No lower extremity edema. (Filiberto Hernandez MD R1) A/P Assessment and Plan 71 year old female with a h/o of COPD on 3lpm home O2 and recent hospitalization for pneumonia one month ago presented with SOB and cough found to have bibasilar infiltrates on CXR. Discharge Planning Anticipate discharge home once medically stable Patient may require PT at home (Filiberto Hernandez MD R1) Attending Attestation Patient examined and case discussed with resident physician I have read the above note and agree with the assessment/plan as discussed with me I was involved in all medical decision making for this patient Brayan Duarte M.D. (Brayan Duarte MD) Problem List: (1) Sepsis Status: Acute Plan: Met sepsis criteria on admission due to HCAP Plan as below (2) HCAP (healthcare-associated pneumonia) Status: Acute Plan: Recently hospitalized 30 days ago for pneumonia and treated with IV antibiotics - CXR showing bibasilar infiltrates Based on up-to-date recommendations and algorithm patient was started on antibiotics as below - Vancomycin, dosing per pharmacy consult for treatment of HCAP - Levaquin 750 mg IV q24h - Zosyn renally dosed per pharmacy at 3.375 gm IV q6h - s/p Levaquin 500 mg IV and azithromycin 500 mg IV in ED - Blood cultures no growth after one day - Sputum culture pending - Urinary legionella and pneumococcal Ags negative - Scheduled DuoNeb's every 4 hours - Albuterol nebulizers every 2 hours as needed for shortness of breath - Solu-Medrol 60 mg IV every 6 hours - Incentive spirometer to bedside - Sputum for AFB culture Infectious disease consulted for recommendations for HCAP and patient having a h /o +PPD testing; appreciate recs (3) COPD exacerbation Status: Acute Plan: - ABG on admission showing mild respiratory alkalosis DuoNeb every 4 hours scheduled Albuterol nebulizers every 2 hours as needed Solu-Medrol 60 mg IV every 6 hours - Status post Solu-Medrol 125 mg IV in the emergency department Antibiotics as above for HCAP Supplemental oxygen as needed to keep O2 sats between 88-92% Incentive spirometer to bedside Consider BiPAP if patient develops worsening SOB (4) Anemia Status: Acute Plan: - Hgb 10.6 from 12.3 on admission - Continue to monitor - Further workup if needed (5) Hypertension Status: Chronic Plan: Restart home amlodipine 5 mg po daily (6) Chronic pain Status: Chronic Plan: - Patient has a h/o chronic pain on [place] 10/325 at home - Continue [place] 10/325 mg q6h (7) Anxiety Status: Chronic Plan: Xanax 0.5 mg po q8h prn anxiety (8) Acute kidney injury Status: Resolved Plan: - Cr 1.24 on admission - now improved to 0.94 today - Monitor I/Os - GFR 59, not needing to renally dose Levaquin - Vancomycin dosing per pharmacy, consider alternate antibiotic if Cr uptrends - Monitor I/Os - Continue to monitor renal function (9) Nutrition, metabolism, and development symptoms Status: Acute Plan: Fluids: NS at 110 cc/hr Electrolytes: Continue to monitor and replete as necessary Nutrition: Heart healthy diet DVT ppx: Heparin 5,000 units subq q12h GI ppx: Protonix 40 mg IV daily (Filiberto Hernandez MD R1) Filiberto Hernandez MD R1 Jan 12, 2017 10:05 Brayan Duarte MD Jan 12, 2017 14:07
[2017-01-12] MEDS ORDERED: POTASSIUM CHLORIDE 20 MEQ CONTROLLED RELEASE TAB PO ONE (10:45)
--- NOTE | 2017-01-12 12:33 | PD.CONS ---
History of Present Illness Service Infectious Disease Consult Requested By Dr Duarte, Dr Hopkins Reason for Consult Eval with Hx (+) PPD and PNA Primary Care Physician Unknown Diagnoses: History of Present Illness Patient seen and examined. Records reviewed. Tried to get history from the patient, and she is a very poor historian. I tried to call the patient's sister , and only got an answering machine. Patient is a 71-year-old female, who lives at home with family, has known O2 dependent COPD, admitted to the hospital for further evaluation of increasing shortness of breath. Patient states that she is really not coughing much during the day, and does so mostly at night. She denies any chest pain. She does not know if she had any fever or chills or sweats. Denies any vomiting or diarrhea. No dysuria but she is incontinent. According to the record she was hospitalized in [facility] about a month ago and was treated for pneumonia. She was discharge on oral antibiotics. Patient is not febrile. Her white count on admission was 23,000. She had a PaO2 of 67 on ABG on 4 L nasal O2. Chest x-ray is showing by basilar alveolar infiltrates. There are some more information apparently that came up and it was a positive PPD skin testing on her. I tried to get more information from the patient as to whether she did have a positive PPD skin testing, and how long we'll go the skin testing was done. And is currently on Levaquin, Zosyn, and vancomycin. There is mention of severe reaction to penicillin, but so far patient has not had any reaction. She continues to be with significant shortness of breath at rest. Infectious disease consultation has been requested to evaluate this patient who has a positive PPD skin test from 20 years ago (according to nursing documentation), and now with pneumonia. Review of Systems ROS Limitations: Poor Historian Past Family Social History Allergies: Coded Allergies: Penicillin (Verified Allergy, Severe, 01/10/17) Quinine (Verified Allergy, Severe, ITCHING, 01/10/17) Ultram (Verified Allergy, Severe, Rash, 01/10/17) Past Medical History COPD on 3 LPM home O2 Anxiety/Depression HTN Per EMR, h/o chronic pain (+) PPD, could not confirm from patient, since she said negative PPD to me; nursing records showe(+) 20 years ago Past Surgical History Bilateral rotator cuff surgery Hysterectomy Active Ordered Medications [place] Albuterol Xanax Norvasc Heparin Levaquin Solumedrol Nystatin powder Protonix Vancomycin Family History Unable to obtain accurately Social History Lives at home with 2 family members Tobacco: at least 1/4 PPD Etoh: denies No illicit drugs Physical Exam Vital Signs Vital Signs Date Time Temp Pulse Resp B/P Pulse Ox O2 Delivery O2 Flow Rate FiO2 01/12/17 10:05 119 01/12/17 08:00 98.4 115 18 138/88 95 01/12/17 07:48 94 Nasal Cannula 3.00 01/12/17 04:00 98.3 110 20 137/87 92 01/12/17 00:00 97.4 112 20 166/75 94 01/11/17 23:38 97 Nasal Cannula 3.00 01/11/17 21:50 113 01/11/17 20:35 98.3 117 22 142/70 95 01/11/17 20:28 96 Nasal Cannula 3.00 01/11/17 20:00 99.1 114 18 143/76 96 01/11/17 16:24 96 Nasal Cannula 2.50 01/11/17 13:00 99.1 115 18 148/86 96 Physical Exam GENERAL: Patient is an obese, well-developed CF, awake and alert, SOB at rest, very poor historian SKIN: Warm and dry. No generalized rash. Some purpura in her UE HEAD: Atraumatic. Normocephalic. No temporal wasting, or tenderness. EYES: [place] conjunctiva. No petechia or hemorrhage. Pupils equal, round and reactive to light. Extraocular movements full and intact. No scleral icterus. No injection or drainage. EARS, NOSE AND THROAT: Nose without bleeding or purulent nasal discharge. No sinus tenderness. Mucous membranes pink and moist. No oral lesions noted. No exudate. No oral thrush. NECK: Trachea midline. Supple and not tender, no meningeal signs CARDIOVASCULAR: Tachycardic, no murmurs, rubs or gallops heard RESPIRATORY: Poor air movement, decreased at bases ABDOMEN: Soft, nondistended, bowel sounds present and normoactive. She has diffuse tenderness, no guarding. No rebound. EXTREMITIES: No clubbing, cyanosis, or edema. No joint effusion, has good ROM. No calf tenderness. Well perfused and warm. NEUROLOGICAL: Awake and alert. Cranial nerves grossly intact. Poor historian PSYCHIATRIC: calm and cooperative. LINE: No evidence of infection Laboratory Laboratory Tests Test 01/12/17 06:29 White Blood Count 16.4 Red Blood Count 4.05 Hemoglobin 10.6 Hematocrit 33.9 Mean Corpuscular Volume 83.8 Mean Corpuscular Hemoglobin 26.2 Mean Corpuscular Hemoglobin 31.2 Concent Red Cell Distribution Width 18.3 Platelet Count 203 Mean Platelet Volume 7.1 Neutrophils (%) (Auto) 90.9 Lymphocytes (%) (Auto) 4.8 Monocytes (%) (Auto) 4.2 Eosinophils (%) (Auto) 0.0 Basophils (%) (Auto) 0.1 Neutrophils # (Auto) 14.9 Lymphocytes # (Auto) 0.8 Monocytes # (Auto) 0.7 Eosinophils # (Auto) 0.0 Basophils # (Auto) 0.0 CBC Comment AUTO DIFF Differential Comment AUTO DIFF CONFIRMED Sodium Level 143 Potassium Level 3.4 Chloride Level 110 Carbon Dioxide Level 23.3 Anion Gap 10 Blood Urea Nitrogen 30 Creatinine 0.94 Estimat Glomerular Filtration 59 Rate Random Glucose 80 Calcium Level 8.6 Date/Time Procedure Status Source Growth 01/11/17 12:45 Gram Stain Resulted Sputum Expectorated Sputum Pending 01/11/17 12:45 Sputum Culture - Preliminary Resulted Gram Negative Juan 01/10/17 17:40 Legionella Antigen - Final Complete Urine Random Urine PRESUMPTIVE NEGATIVE FOR LEGIONELLA P... 01/10/17 17:40 Streptococcus pneumoniae Antigen (M - Final Complete Urine Random Urine PRESUMPTIVE NEGATIVE FOR STREPTOCOCCU... 01/10/17 14:25 Influenza Types A,B Antigen (LONNIE) - Final Complete Nasal Washing NEGATIVE FOR FLU A AND B ANTIGEN.... 01/10/17 13:50 Aerobic Blood Culture - Preliminary Resulted Blood Peripheral NO GROWTH IN 2 DAYS 01/10/17 13:50 Anaerobic Blood Culture - Preliminary Resulted Blood Peripheral NO GROWTH IN 2 DAYS Result Diagram: 01/12/17 0629 01/12/17 0629 Imaging RADIOLOGY STUDIES/FILMS REVIEWED Chest X-Ray 01/10/17 1333 Signed Impressions: Service Date/Time: Tuesday, January 10, 2017 13:49 - CONCLUSION: Bibasilar infiltrates. Jozef Smith Jr., MD Assessment and Plan Assessment and Plan IMPRESSION Pneumonia, bilateral, patient with O2 dependent COPD - sputum with GNR - per notes, she was hospitalized 1 month ago [facility] Per nursing records: (+) PPD 20 years ago - risk of reactivation at this stage, if (+) from 20 years ago, is very low Allergy to PCN - says severe, but has been tolerating Zosyn RECOMMENDATION Change Zosyn to Cefepime Continue Levaquin Continue Vancomycin Follow C/S and adjust Abx Get records from [facility] I will follow along with you and make further recommendations on Rx Thank you for this consultation Mila Dunlap MD Jan 12, 2017 12:32
[2017-01-12] MEDS: ALPRAZolam 0.5 MG TAB PO PRN ×2 (12:50→20:12)
[2017-01-12] MEDS ORDERED: MORPHINE SULFATE 4 MG/ML INJ IV PUSH PRN (15:00)
[2017-01-12] MEDS: CEFEPIME INJ 2,000 MG in SODIUM CHLORIDE 0.9% INJ 100 ML IV SCH ×2 (15:16→22:05)
[2017-01-12] MEDS: LEVOFLOXACIN 750 MG PREMIX INJ 150 ML IV SCH (16:12)
[2017-01-12] MEDS: amLODIPine BESYLATE 5 MG TAB PO SCH (16:12)
[2017-01-12] MEDS: SERTRALINE HCL 50 MG TAB PO SCH (16:12)
[2017-01-12] MEDS: GABAPENTIN 300 MG CAP PO SCH (16:12)
[2017-01-12] MEDS: risperiDONE 0.5 MG TAB PO SCH ×2 (16:13→20:13)
[2017-01-12] MEDS: ACETAMINOPHEN/HYDROcodone 325 MG/10 MG TAB PO PRN ×2 (16:13→22:04)
[2017-01-12] MEDS: PANTOPRAZOLE SODIUM 40 MG VIAL IV PUSH SCH (20:12)
[2017-01-13] VITALS (9 sets, daily range): BP systolic 126–164; BP diastolic 86–114; PULSE 106–123; RESP 18–20; TEMP 97.8–98.8; O2SAT 92–98
[2017-01-13] MEDS: VANCOMYCIN 1,000 MG/NS 250 ML IV SCH ×2 (00:38)
[2017-01-13] MEDS: RESP: ALBUTEROL 2.5 MG/IPRATROPIUM 0.5 MG NEB (SCH) INH ×3 (00:48→09:03)
[2017-01-13] MEDS: methylPREDNISolone SOD SUCC 125 MG/2 ML VIAL IVP SCH ×4 (02:02→20:30)
[2017-01-13] MEDS: CEFEPIME INJ 2,000 MG in SODIUM CHLORIDE 0.9% INJ 100 ML IV SCH (06:15)
[2017-01-13] MEDS: HEPARIN SODIUM - SQ 10,000 UNITS/ML VIAL SQ SCH ×2 (06:15→16:42)
[2017-01-13] MEDS: SODIUM CHLOR 0.9% 1000 ML INJ 1,000 ML IV SCH (06:33)
--- NOTE | 2017-01-13 10:46 | HHI.FPPN ---
Subjective Remarks No acute events overnight. Remains afebrile. Patients appears comfortable this morning lying in bed. She states she still has some SOB but improved since admission. Denies fevers or CP. Denies tremors. States she has been OOB with assistance. Denies worsening cough. (Filiberto Hernandez MD R1) Objective Vitals Vital Signs Date Time Temp Pulse Resp B/P Pulse Ox O2 Delivery O2 Flow Rate FiO2 01/13/17 09:04 97 Nasal Cannula 3.00 01/13/17 08:00 97.8 112 18 150/97 94 01/13/17 04:00 Nasal Cannula 3.00 01/13/17 04:00 97.9 106 20 156/97 96 01/13/17 00:00 97.8 108 20 144/95 95 01/13/17 00:00 Nasal Cannula 3.00 01/12/17 20:00 122 01/12/17 20:00 98.3 119 18 125/79 95 01/12/17 19:30 93 Nasal Cannula 3.00 01/12/17 16:00 99.0 115 18 157/91 94 01/12/17 12:00 99.0 115 21 153/92 96 I/O 01/12/17 01/12/17 01/12/17 01/13/17 01/13/17 01/13/17 07:00 15:00 23:00 07:00 15:00 23:00 Intake Total 902 ml 120 ml 280 ml 120 ml Output Total 400 ml Balance 902 ml 120 ml 280 ml -280 ml Intake Oral 240 ml 120 ml 280 ml 120 ml IV Total 662 ml Output Urine Total 400 ml # Voids 2 4 2 # Bowel Movements 2 2 0 1 (Filiberto Hernandez MD R1) Result Diagram: 01/12/1762801/12/17 06 Objective Remarks GENERAL: Elderly female, lying in bed in [facility] NEURO: AOx3. Speech soft but not slurred. enforcement safety officer grossly intact. Motor grossly normal. SKIN: Warm and dry. Scattered ecchymoses primarily left distal arm. CARDIOVASCULAR: Tachycardic rate, regular rhythm without murmurs, rubs, or gallops. RESPIRATORY: Bibasilar rales with scattered expiratory wheezing. Moderate air exchange. No accessory muscle use GASTROINTESTINAL: Abdomen soft, nontender, nondistended MUSCULOSKELETAL: No lower extremity edema or tenderness (Filiberto Hernandez MD R1 ) A/P Assessment and Plan 71 year old female with a h/o of COPD on 3lpm home O2 and recent hospitalization for pneumonia one month ago presented with SOB and cough found to have bibasilar infiltrates on CXR. Discharge Planning Anticipate discharge home once medically stable Hospice consulted Patient may require PT at home (Filiberto Hernandez MD R1) Attending Attestation Patient examined and case discussed with resident physicians I have read the above note and agree with the assessment/plan is discussed with me I was involved in all medical decision making for this patient Brayan Duarte M.D. (Brayan Duarte MD) Problem List: (1) Sepsis Status: Acute Plan: Met sepsis criteria on admission due to HCAP Plan as below (2) HCAP (healthcare-associated pneumonia) Status: Acute Plan: Recently hospitalized 30 days ago for pneumonia and treated with IV antibiotics - CXR showing bibasilar infiltrates Based on up-to-date recommendations and algorithm patient was started on antibiotics as below - Vancomycin, dosing per pharmacy consult for treatment of HCAP - Levaquin 750 mg IV q24h - Discontinued Zosyn per ID (01/10-) - Started Cefepime 2gm IV q8h (started 01/12) - s/p Levaquin 500 mg IV and azithromycin 500 mg IV in ED - Blood cultures no growth after 2 days - Sputum culture growing E coli; moderate budding yeast with pseudohyphae - Urinary legionella and pneumococcal Ags negative - Scheduled DuoNeb's every 4 hours - Albuterol nebulizers every 2 hours as needed for shortness of breath - Solu-Medrol 60 mg IV every 6 hours - Incentive spirometer to bedside - Sputum for AFB culture Infectious disease consulted for recommendations for HCAP and patient having a h /o +PPD testing; appreciate recs (3) COPD exacerbation Status: Acute Plan: - ABG on admission showing mild respiratory alkalosis DuoNeb every 4 hours scheduled Albuterol nebulizers every 2 hours as needed Solu-Medrol 60 mg IV every 6 hours - Status post Solu-Medrol 125 mg IV in the emergency department Antibiotics as above for HCAP Supplemental oxygen as needed to keep O2 sats between 88-92% Incentive spirometer to bedside Consider BiPAP if patient develops worsening SOB (4) Anemia Status: Acute Plan: - Stable, continue to monitor H/H (5) Hypertension Status: Chronic Plan: Restart home amlodipine 5 mg po daily Monitor vitals q4h (6) Chronic pain Status: Chronic Plan: - Patient has a h/o chronic pain - Continue [place] 10/325 mg q6h prn pain 6-10 - Morphine 2 mg IV q4h prn breakthrough (7) Anxiety Status: Chronic Plan: Xanax 0.5 mg po q8h prn anxiety (8) Acute kidney injury Status: Resolved Plan: - Monitor renal function - Monitor I/Os - GFR 59, not needing to renally dose Levaquin - Vancomycin dosing per pharmacy, consider alternate antibiotic if Cr uptrends - Monitor I/Os (9) Nutrition, metabolism, and development symptoms Status: Acute Plan: Fluids: NS at 110 cc/hr Electrolytes: Continue to monitor and replete as necessary Nutrition: Heart healthy diet DVT ppx: Heparin 5,000 units subq q12h GI ppx: Protonix 40 mg IV daily (Filiberto Hernandez MD R1) Filiberto Hernandez MD R1 Jan 13, 2017 10:46 Brayan Duarte MD Jan 13, 2017 13:11
[2017-01-13] MEDS: SERTRALINE HCL 50 MG TAB PO SCH (11:09)
[2017-01-13] MEDS: ACETAMINOPHEN/HYDROcodone 325 MG/10 MG TAB PO PRN ×2 (11:09→16:42)
[2017-01-13] MEDS: GABAPENTIN 300 MG CAP PO SCH ×2 (11:09→16:42)
[2017-01-13] MEDS: risperiDONE 0.5 MG TAB PO SCH ×2 (11:09→20:28)
[2017-01-13] MEDS: amLODIPine BESYLATE 5 MG TAB PO SCH (11:09)
[2017-01-13] MEDS: SODIUM CHLORIDE 0.9% FLUSH 10 ML FLUSH IV FLUSH SCH ×2 (11:10→20:31)
[2017-01-13] MEDS: NYSTATIN 100,000 U/GM PWD 15 GM BTL TOPICAL SCH ×2 (11:10→20:31)
--- NOTE | 2017-01-13 13:45 | HHI.IDPN ---
Subjective Subjective Remarks Patient is a 71-year-old female, who lives at home with family, has known O2 dependent COPD, admitted to the hospital for further evaluation of increasing shortness of breath. Patient states that she is really not coughing much during the day, and does so mostly at night. She denies any chest pain. She does not know if she had any fever or chills or sweats. Denies any vomiting or diarrhea. No dysuria but she is incontinent. According to the record she was hospitalized in [facility] about a month ago and was treated for pneumonia. She was discharge on oral antibiotics. Patient is not febrile. Her white count on admission was 23,000. She had a PaO2 of 67 on ABG on 4 L nasal O2. Chest x-ray is showing by basilar alveolar infiltrates. There are some more information apparently that came up and it was a positive PPD skin testing on her. I tried to get more information from the patient as to whether she did have a positive PPD skin testing, and how long we'll go the skin testing was done. And is currently on Levaquin, Zosyn, and vancomycin. There is mention of severe reaction to penicillin, but so far patient has not had any reaction. She continues to be with significant shortness of breath at rest. Notes reviewed Temps ok Breathing slightly better Sputum C/S E coli Antibiotics Cefepime Levaquin Vanco Lines PIV Past Medical History COPD on 3 LPM home O2 Anxiety/Depression HTN Per EMR, h/o chronic pain (+) PPD, could not confirm from patient, since she said negative PPD to me; nursing records showe(+) 20 years ago Past Surgical History Bilateral rotator cuff surgery Hysterectomy Allergies: Coded Allergies: Penicillin (Verified Allergy, Severe, 01/10/17) Quinine (Verified Allergy, Severe, ITCHING, 01/10/17) Ultram (Verified Allergy, Severe, Rash, 01/10/17) Objective . Vital Signs Date Time Temp Pulse Resp B/P Pulse Ox O2 Delivery O2 Flow Rate FiO2 01/13/17 12:00 98.5 123 18 163/114 92 01/13/17 09:04 97 Nasal Cannula 3.00 01/13/17 09:00 Nasal Cannula 3.00 01/13/17 08:00 97.8 112 18 150/97 94 01/13/17 04:00 Nasal Cannula 3.00 01/13/17 04:00 97.9 106 20 156/97 96 01/13/17 00:00 97.8 108 20 144/95 95 01/13/17 00:00 Nasal Cannula 3.00 01/12/17 20:00 122 01/12/17 20:00 98.3 119 18 125/79 95 01/12/17 19:30 93 Nasal Cannula 3.00 01/12/17 16:00 99.0 115 18 157/91 94 01/12/17 01/12/17 01/13/17 15:00 23:00 07:00 Intake Total 120 ml 280 ml 120 ml Output Total 400 ml Balance 120 ml 280 ml -280 ml Intake Oral 120 ml 280 ml 120 ml Output Urine Total 400 ml # Voids 4 2 # Bowel Movements 2 0 1 . Laboratory Tests Test 01/12/17 06:29 White Blood Count 16.4 TH/MM3 Red Blood Count 4.05 MIL/MM3 Hemoglobin 10.6 GM/DL Hematocrit 33.9 % Mean Corpuscular Volume 83.8 FL Mean Corpuscular Hemoglobin 26.2 PG Mean Corpuscular Hemoglobin 31.2 % Concent Red Cell Distribution Width 18.3 % Platelet Count 203 TH/MM3 Mean Platelet Volume 7.1 FL Neutrophils (%) (Auto) 90.9 % Lymphocytes (%) (Auto) 4.8 % Monocytes (%) (Auto) 4.2 % Eosinophils (%) (Auto) 0.0 % Basophils (%) (Auto) 0.1 % Neutrophils # (Auto) 14.9 TH/MM3 Lymphocytes # (Auto) 0.8 TH/MM3 Monocytes # (Auto) 0.7 TH/MM3 Eosinophils # (Auto) 0.0 TH/MM3 Basophils # (Auto) 0.0 TH/MM3 CBC Comment AUTO DIFF Differential Comment AUTO DIFF CONFIRMED Laboratory Tests Test 01/12/17 06:29 Sodium Level 143 MEQ/L Potassium Level 3.4 MEQ/L Chloride Level 110 MEQ/L Carbon Dioxide Level 23.3 MEQ/L Anion Gap 10 MEQ/L Blood Urea Nitrogen 30 MG/DL Creatinine 0.94 MG/DL Estimat Glomerular Filtration 59 ML/MIN Rate Random Glucose 80 MG/DL Calcium Level 8.6 MG/DL Microbiology Date/Time Procedure Status Source Growth 01/10/17 13:45 Aerobic Blood Culture - Preliminary Resulted Blood Peripheral NO GROWTH IN 3 DAYS 01/10/17 13:45 Anaerobic Blood Culture - Preliminary Resulted Blood Peripheral NO GROWTH IN 3 DAYS 01/10/17 13:50 Aerobic Blood Culture - Preliminary Resulted Blood Peripheral NO GROWTH IN 3 DAYS 01/10/17 13:50 Anaerobic Blood Culture - Preliminary Resulted Blood Peripheral NO GROWTH IN 3 DAYS 01/10/17 14:25 Influenza Types A,B Antigen (LONNIE) - Final Complete Nasal Washing NEGATIVE FOR FLU A AND B ANTIGEN.... 01/10/17 17:40 Legionella Antigen - Final Complete Urine Random Urine PRESUMPTIVE NEGATIVE FOR LEGIONELLA P... 01/10/17 17:40 Streptococcus pneumoniae Antigen (M - Final Complete Urine Random Urine PRESUMPTIVE NEGATIVE FOR STREPTOCOCCU... 01/11/17 12:45 Gram Stain - Final Complete Sputum Expectorated Sputum 01/11/17 12:45 Sputum Culture - Final Complete Escherichia Coli Imaging Last Impressions Chest X-Ray 01/10/17 1333 Signed Impressions: Service Date/Time: Tuesday, January 10, 2017 13:49 - CONCLUSION: Bibasilar infiltrates. Jozef Smith Jr., MD Physical Exam GENERAL: Patient is an obese, well-developed CF, awake and alert, mild SOB at rest SKIN: Warm and dry. No generalized rash. Some purpura in her UE HEAD: Atraumatic. Normocephalic. No temporal wasting, or tenderness. EYES: [place] conjunctiva. No petechia or hemorrhage. Pupils equal, round and reactive to light. Extraocular movements full and intact. No scleral icterus. No injection or drainage. EARS, NOSE AND THROAT: Nose without bleeding or purulent nasal discharge. No sinus tenderness. Mucous membranes pink and moist. No oral lesions noted. No exudate. No oral thrush. NECK: Trachea midline. Supple and not tender, no meningeal signs CARDIOVASCULAR: Tachycardic, no murmurs, rubs or gallops heard RESPIRATORY: Poor air movement, decreased at bases ABDOMEN: Soft, nondistended, bowel sounds present and normoactive. She has diffuse tenderness, no guarding. No rebound. EXTREMITIES: No clubbing, cyanosis, or edema. No joint effusion, has good ROM. No calf tenderness. Well perfused and warm. NEUROLOGICAL: Awake and alert. Cranial nerves grossly intact. Poor historian PSYCHIATRIC: calm and cooperative. LINE: No evidence of infection Assessment & Plan Remarks IMPRESSION Pneumonia, bilateral, patient with O2 dependent COPD - sputum with E coli - per notes, she was hospitalized 1 month ago [facility] Per nursing records: (+) PPD 20 years ago - risk of reactivation at this stage, if (+) from 20 years ago, is very low Allergy to PCN - says severe, but has been tolerating Zosyn RECOMMENDATION Change Cefepime to Rocephin - continue IV Abx this and change to po Ceftin on Monday if she continues to improve, and give 7 days oral Abx Stop Levaquin Stop Vancomycin Zithromax x 7days D/C isolation once TB test back and negative Mila Dunlap MD Jan 13, 2017 13:45
[2017-01-13] MEDS: RESP: IPRATROPIUM 0.5 MG/2.5 ML NEB NEB SCH ×4 (13:46→23:47)
[2017-01-13] MEDS: cefTRIAXone INJ 2,000 MG in SODIUM CHLORIDE 0.9% INJ 100 ML IV SCH (15:07)
[2017-01-13] MEDS: AZITHROMYCIN 250 MG TAB PO SCH (15:08)
[2017-01-13 18:43] LABS: BICARBONATE 20.1 MEQ/L (21.0-32.0)
[2017-01-13 19:00] LABS: AUTOMATED NEUTROPHIL # 10.6 TH/MM3 (1.8-7.7); BASOPHIL % 0.2 % (0.0-2.0); HEMATOCRIT 35.3 % (35.0-46.0); LYMPH % 5.7 % (9.0-44.0); LYMPHOCYTE # 0.7 TH/MM3 (1.0-4.8); MEAN CELL VOLUME 81.9 FL (80.0-100.0); MEAN CORPUSCULAR HEMOGLOBIN 27.3 PG (27.0-34.0); MEAN CORPUSCULAR HGB CONC 33.4 % (32.0-36.0); MONO % 3.9 % (0.0-8.0); NEUT % 90.2 % (16.0-70.0); PLATELET COUNT 167 TH/MM3 (150-450); RED BLOOD COUNT 4.31 MIL/MM3 (4.00-5.30); RED CELL DISTRIBUTION WIDTH 18.6 % (11.6-17.2); WHITE BLOOD COUNT 11.8 TH/MM3 (4.0-11.0)
[2017-01-13 19:01] LABS: HEMO FLAGS AUTO DIFF
[2017-01-13 19:26] LABS: BANDS 3 % (0-6); NEUTROPHIL # MANUAL DIFF 10.6 TH/MM3 (1.8-7.7); POLYS (SEG NEUTROPHILS) 87 % (16-70); WBC DIFF SAMPLE 100
[2017-01-13 19:28] LABS: OVALOCYTES 1+ (NORMAL); PLATELET ESTIMATE SMEAR NORMAL (NORMAL); PLATELET MORPHOLOGY NORMAL (NORMAL); SCAN/DIFF FINAL DIFF MANUAL
[2017-01-13] MEDS: ALPRAZolam 0.5 MG TAB PO PRN (20:28)
[2017-01-13] MEDS: PANTOPRAZOLE SODIUM 40 MG VIAL IV PUSH SCH (20:30)
[2017-01-13] MEDS ORDERED: PHARMACY ORDERED LAB ONE (23:45)
[2017-01-14] VITALS (10 sets, daily range): BP systolic 137–160; BP diastolic 74–96; PULSE 89–114; RESP 18; TEMP 96.6–99.1; O2SAT 93–99
[2017-01-14] MEDS: methylPREDNISolone SOD SUCC 125 MG/2 ML VIAL IVP SCH ×4 (01:39→21:41)
[2017-01-14] MEDS: RESP: IPRATROPIUM 0.5 MG/2.5 ML NEB NEB SCH ×5 (03:20→20:49)
[2017-01-14] MEDS: ACETAMINOPHEN/HYDROcodone 325 MG/10 MG TAB PO PRN ×2 (04:19→18:08)
[2017-01-14] MEDS: HEPARIN SODIUM - SQ 10,000 UNITS/ML VIAL SQ SCH ×2 (05:37→17:04)
[2017-01-14] MEDS: GABAPENTIN 300 MG CAP PO SCH ×3 (08:34→17:03)
[2017-01-14] MEDS: risperiDONE 0.5 MG TAB PO SCH ×2 (08:34→21:42)
[2017-01-14] MEDS: SODIUM CHLORIDE 0.9% FLUSH 10 ML FLUSH IV FLUSH SCH ×2 (08:34→21:41)
[2017-01-14] MEDS: AZITHROMYCIN 250 MG TAB PO SCH (08:35)
[2017-01-14] MEDS: NYSTATIN 100,000 U/GM PWD 15 GM BTL TOPICAL SCH ×2 (08:35→21:00)
[2017-01-14] MEDS: SERTRALINE HCL 50 MG TAB PO SCH (08:35)
--- NOTE | 2017-01-14 09:13 | HHI.FPPN ---
Subjective Remarks No events overnight. Pt lying in bed, eating breakfast. Vitals are within normal limits. Afebrile. Very pleasant this AM. Reports that she is breathing a lot better since admission. On 3L O2 NC. Complains of groin, itchy pain. States that she is receiving nystatin cream and powder applied to the affected area. Denies SOB, CP, N/V, swelling, and abdominal pain. (Kizzy Maradiaga MD R1) Objective Vitals Vital Signs Date Time Temp Pulse Resp B/P Pulse Ox O2 Delivery O2 Flow Rate FiO2 01/14/17 04:00 96.6 99 18 150/96 94 01/14/17 04:00 Nasal Cannula 3.00 01/14/17 00:00 Nasal Cannula 3.00 01/14/17 00:00 98.6 89 18 157/74 93 01/13/17 23:50 95 Nasal Cannula 3.00 01/13/17 20:00 121 01/13/17 20:00 97.9 119 18 126/86 94 01/13/17 20:00 Nasal Cannula 3.00 01/13/17 16:00 98.8 118 18 164/96 98 01/13/17 15:35 98 Nasal Cannula 3.00 01/13/17 12:00 98.5 123 18 163/114 92 I/O 01/13/17 01/13/17 01/13/17 01/14/17 01/14/17 01/14/17 07:00 15:00 23:00 07:00 15:00 23:00 Intake Total 120 ml 480 ml 1700 ml Output Total 400 ml Balance -280 ml 480 ml 1700 ml Intake Oral 120 ml 480 ml IV Total 1700 ml Output Urine Total 400 ml # Voids 6 3 2 # Bowel Movements 1 5 (Kizzy Maradiaga MD R1) Result Diagram: 01/13/17 1729 01/13/17 172 Objective Remarks GENERAL: Elderly female, lying in bed in [facility] NEURO: AOx3. Speech soft but not slurred. staff psychiatrist grossly intact. Motor grossly normal. SKIN: Warm and dry. Scattered ecchymoses primarily left distal arm. CARDIOVASCULAR: Tachycardic rate, regular rhythm without murmurs, rubs, or gallops. RESPIRATORY: Mild wheezing in lung bases. No accessory muscle use GASTROINTESTINAL: Abdomen soft, nontender, nondistended MUSCULOSKELETAL: No lower extremity edema or tenderness : erythematous area in left inguinal region and around vulva, no warmth, no lesions, no swelling, no inguinal LAD (Kizzy Maradiaga MD R1) A/P Assessment and Plan 71 year old female with a h/o of COPD on 3lpm home O2 and recent hospitalization for pneumonia one month ago presented with SOB and cough found to have bibasilar infiltrates on CXR. Discharge Planning Anticipate discharge home once medically stable Hospice consulted Patient may require PT at home (Kizzy Maradiaga MD R1) Attending Attestation Pt. examined and case discussed with resident physicians I have read the above note and agree with the assessment/plan as discussed with me I was involved in all medical decision making for this patient Brayan Duarte MD (Brayan Duarte MD) Problem List: (1) Sepsis Status: Acute Plan: Met sepsis criteria on admission due to HCAP Plan as below (2) HCAP (healthcare-associated pneumonia) Status: Acute Plan: Recently hospitalized 30 days ago for pneumonia and treated with IV antibiotics - CXR showing bibasilar infiltrates Based on up-to-date recommendations and algorithm patient was started on antibiotics as below - Started Rocephin 100mls @ 200mls/hr Q24 H IV (started 01/13), continue IV abx this weekend and change to PO on Monday if she continues to improve, give 7 days oral ABx - Continue Azithromycin (01/13- 01/20) for 7 days - Discontinued Vancomycin per ID (01/11-01/13) - Discontinued Levaqin per ID ( 01/11-01/13) - Discontinued Zosyn per ID (01/10-) - Discontinued Cefepime per ID (01/12-01/13) -s/p Levaquin 500 mg IV and azithromycin 500 mg IV in ED -D/C isolation once TB test back and negative - Blood cultures no growth after 2 days - Sputum culture growing E coli; moderate budding yeast with pseudohyphae - Urinary legionella and pneumococcal Ags negative - Scheduled DuoNeb's every 4 hours - Albuterol nebulizers every 2 hours as needed for shortness of breath - Solu-Medrol 60 mg IV every 6 hours - Incentive spirometer to bedside - Sputum for AFB culture Infectious disease consulted for recommendations for HCAP and patient having a h /o +PPD testing; appreciate recs (3) COPD exacerbation Status: Acute Plan: - ABG on admission showing mild respiratory alkalosis DuoNeb every 4 hours scheduled Albuterol nebulizers every 2 hours as needed Solu-Medrol 60 mg IV every 6 hours - Status post Solu-Medrol 125 mg IV in the emergency department Antibiotics as above for HCAP Supplemental oxygen as needed to keep O2 sats between 88-92% Incentive spirometer to bedside Consider BiPAP if patient develops worsening SOB (4) Anemia Status: Acute Plan: - Stable, continue to monitor H/H (5) Hypertension Status: Chronic Plan: Patient BP 157/74 this AM Increase home amlodipine 10 mg po daily Start metoprolol 12.5 mg PO daily Monitor vitals q4h (6) Chronic pain Status: Chronic Plan: - Patient has a h/o chronic pain - Continue [place] 10/325 mg q6h prn pain 6-10 - Morphine 2 mg IV q4h prn breakthrough (7) Anxiety Status: Chronic Plan: Xanax 0.5 mg po q8h prn anxiety (8) Acute kidney injury Status: Resolved Plan: - Monitor renal function - Monitor I/Os (9) Vaginal irritation Status: Acute Plan: -Nystatin powder q12 (10) Nutrition, metabolism, and development symptoms Status: Acute Plan: Fluids: NS at 110 cc/hr Electrolytes: Continue to monitor and replete as necessary Nutrition: Heart healthy diet DVT ppx: Heparin 5,000 units subq q12h GI ppx: Protonix 40 mg IV daily (Kizzy Maradiaga MD R1) Kizzy Maradiaga MD R1 Jan 14, 2017 09:13 Brayan Duarte MD Jan 14, 2017 15:47
[2017-01-14] MEDS ORDERED: PILL SPLITTER OTHER PRN (09:45)
[2017-01-14] MEDS: METOPROLOL SUCCINATE 25 MG EXTENDED RELEASE TAB PO SCH (10:58)
[2017-01-14 12:24] LABS: POTASSIUM 4.2 MEQ/L (3.5-5.1)
[2017-01-14] MEDS: cefTRIAXone INJ 2,000 MG in SODIUM CHLORIDE 0.9% INJ 100 ML IV SCH (14:30)
[2017-01-14] MEDS: ALPRAZolam 0.5 MG TAB PO PRN (18:08)
[2017-01-14] MEDS: PANTOPRAZOLE SODIUM 40 MG VIAL IV PUSH SCH (21:42)
[2017-01-15] VITALS (8 sets, daily range): BP systolic 132–156; BP diastolic 52–97; PULSE 88–102; RESP 17–20; TEMP 95.2–98.7; O2SAT 93–97
[2017-01-15] MEDS: ACETAMINOPHEN/HYDROcodone 325 MG/10 MG TAB PO PRN ×4 (00:42→21:42)
[2017-01-15 01:38] LABS: AUTOMATED NEUTROPHIL # 9.7 TH/MM3 (1.8-7.7); BASOPHIL % 0.2 % (0.0-2.0); HEMATOCRIT 33.8 % (35.0-46.0); LYMPH % 6.4 % (9.0-44.0); LYMPHOCYTE # 0.7 TH/MM3 (1.0-4.8); MEAN CELL VOLUME 81.8 FL (80.0-100.0); MEAN CORPUSCULAR HEMOGLOBIN 27.3 PG (27.0-34.0); MEAN CORPUSCULAR HGB CONC 33.4 % (32.0-36.0); MONO % 3.6 % (0.0-8.0); NEUT % 89.8 % (16.0-70.0); PLATELET COUNT 172 TH/MM3 (150-450); RED BLOOD COUNT 4.14 MIL/MM3 (4.00-5.30); RED CELL DISTRIBUTION WIDTH 18.2 % (11.6-17.2); WHITE BLOOD COUNT 10.8 TH/MM3 (4.0-11.0)
[2017-01-15 01:39] LABS: HEMO FLAGS AUTO DIFF
[2017-01-15 01:59] LABS: OVALOCYTES 1+ (NORMAL); PLATELET ESTIMATE SMEAR NORMAL (NORMAL); PLATELET MORPHOLOGY NORMAL (NORMAL); SCAN/DIFF AUTO DIFF CONFIRMED
[2017-01-15] MEDS: SODIUM CHLORIDE 0.9% FLUSH 10 ML FLUSH IV FLUSH PRN (02:38)
[2017-01-15] MEDS: methylPREDNISolone SOD SUCC 125 MG/2 ML VIAL IVP SCH ×4 (02:38→21:42)
[2017-01-15] MEDS: ALPRAZolam 0.5 MG TAB PO PRN ×2 (02:38→11:57)
[2017-01-15] MEDS: RESP: IPRATROPIUM 0.5 MG/2.5 ML NEB NEB SCH ×6 (04:00→20:47)
[2017-01-15] MEDS: HEPARIN SODIUM - SQ 10,000 UNITS/ML VIAL SQ SCH ×2 (06:20→17:56)
[2017-01-15] MEDS: risperiDONE 0.5 MG TAB PO SCH ×2 (08:23→21:42)
[2017-01-15] MEDS: SERTRALINE HCL 50 MG TAB PO SCH (08:23)
[2017-01-15] MEDS: GABAPENTIN 300 MG CAP PO SCH ×3 (08:23→17:55)
[2017-01-15] MEDS: AZITHROMYCIN 250 MG TAB PO SCH (08:23)
[2017-01-15] MEDS: SODIUM CHLORIDE 0.9% FLUSH 10 ML FLUSH IV FLUSH SCH ×2 (08:27→21:42)
[2017-01-15] MEDS: METOPROLOL SUCCINATE 25 MG EXTENDED RELEASE TAB PO SCH (08:28)
[2017-01-15] MEDS: NYSTATIN 100,000 U/GM PWD 15 GM BTL TOPICAL SCH ×2 (08:28→21:00)
--- NOTE | 2017-01-15 13:15 | HHI.FPPN ---
Subjective Remarks Patient seen and examined this morning. Conjunctivae 98.7, pulse 100, respiratory rate 19, blood pressure 146/90, pulse ox 96 on 3 L nasal cannula. Patient reports that she is feeling good today. She is only having some mild shortness of breath per her report. She denies any chest pain. She understands that the plan of care is to continue IV antibiotics until Monday. Endorses: Mild shortness of breath Denies: Fever, chills, nausea, vomiting, chest pain, headache, abdominal pain, calf pain (Giancarlo Hopkins MD R2) Objective Vitals Vital Signs Date Time Temp Pulse Resp B/P Pulse Ox O2 Delivery O2 Flow Rate FiO2 01/15/17 12:01 96 Nasal Cannula 3.00 01/15/17 12:00 98.7 100 19 146/90 96 01/15/17 08:00 95.2 93 18 140/52 93 01/15/17 08:00 Nasal Cannula 3.00 01/15/17 05:06 Nasal Cannula 3.00 Humidified 01/15/17 05:06 97.1 89 18 156/97 94 01/15/17 00:56 Nasal Cannula 3.00 Humidified 01/15/17 00:56 97.8 88 18 145/96 97 01/14/17 20:50 99 Nasal Cannula 2.00 01/14/17 20:00 Nasal Cannula 3.00 Humidified 01/14/17 20:00 97.8 99 18 137/86 94 01/14/17 16:00 Nasal Cannula 3.00 01/14/17 16:00 98.3 107 18 160/94 96 I/O 01/14/17 01/14/17 01/14/17 01/15/17 01/15/17 01/15/17 07:00 15:00 23:00 07:00 15:00 23:00 Intake Total 365 ml Balance 365 ml Intake Oral 360 ml IV Total 5 ml # Voids 2 5 3 3 # Bowel Movements 2 1 0 (Giancarlo Hopkins MD R2) Result Diagram: 01/15/17 0104 01/14/17 1131 Imaging Last Impressions Chest X-Ray 01/10/17 1333 Signed Impressions: Service Date/Time: Tuesday, January 10, 2017 13:49 - CONCLUSION: Bibasilar infiltrates. Jozef Smith Jr., MD Objective Remarks GENERAL: Elderly female, lying in bed in [facility] NEURO: AOx3. Speech soft but not slurred. credit card analyst grossly intact. Motor grossly normal. SKIN: Warm and dry. Scattered ecchymoses primarily left distal arm. CARDIOVASCULAR: Tachycardic rate, regular rhythm without murmurs, rubs, or gallops. RESPIRATORY: Mild wheezing in lung bases. No accessory muscle use GASTROINTESTINAL: Abdomen soft, nontender, nondistended MUSCULOSKELETAL: No lower extremity edema or tenderness : erythematous area in left inguinal region and around vulva, no warmth, no lesions, no swelling, no inguinal LAD Medications and IVs Current Medications Medications (Trade) Dose Ordered Sig/Hemal Route Start Time Stop Time Status Last Admin (NS Flush) 2 ml UNSCH PRN IV FLUSH 01/10/17 16:15 01/15/17 02:38 (NS Flush) 2 ml BID IV FLUSH 01/10/17 21:00 01/15/17 08:27 (Heparin Inj) 5,000 units Q12H SQ 01/10/17 18:00 01/15/17 06:20 (Narcan Inj) 0.4 mg UNSCH PRN IV 01/10/17 16:15 (SoluMEDROL INJ) 60 mg Q6H IVP 01/10/17 20:00 01/15/17 13:32 (Xanax) 0.5 mg Q8H PRN PO 01/10/17 19:00 01/15/17 11:57 (Protonix Inj) 40 mg Q24H IV PUSH 01/10/17 21:00 01/14/17 21:42 (Mycostatin Powder) 1 applic Q12HR TOPICAL 01/11/17 09:45 01/15/17 08:28 ([place] 10-325 Mg) 1 tab Q6H PRN PO 01/12/17 15:00 01/15/17 13:31 (Morphine Inj) 2 mg Q4HR PRN IV PUSH 01/12/17 15:00 (Neurontin) 300 mg TID PO 01/12/17 18:00 01/15/17 13:32 (risperDAL) 0.5 mg Q12HR PO 01/12/17 15:00 01/15/17 08:23 (Zoloft) 50 mg DAILY PO 01/12/17 15:00 01/15/17 08:23 Azithromycin 500 mg 500 mg DAILY PO 01/13/17 14:00 01/20/17 13:59 01/15/17 08:23 (Rocephin Inj/NS Inj) 100 ml @ 200 mls/hr Q24H IV 01/13/17 14:00 01/15/17 13:32 (Norvasc) 10 mg DAILY PO 01/14/17 07:45 01/15/17 08:27 (Pill Splitter) 1 ea UNSCH PRN OTHER 01/14/17 09:45 (Toprol Xl) 25 mg DAILY PO 01/16/17 09:00 (Giancarlo Hopkins MD R2) A/P Assessment and Plan 71 year old female with a h/o of COPD on 3lpm home O2 and recent hospitalization for pneumonia one month ago presented with SOB and cough found to have bibasilar infiltrates on CXR. Discharge Planning Anticipate discharge home once medically stable Hospice consulted Patient may require PT at home (Giancarlo Hopkins MD R2) Attending Attestation Pt. examined and case discussed with resident physicians I have read the above note and agree with the assessment/plan as discussed with me I was involved in all medical decision making for this patient Brayan Duarte MD (Brayan Duarte MD) Problem List: (1) Sepsis Status: Acute Plan: Met sepsis criteria on admission due to HCAP Plan as below (2) HCAP (healthcare-associated pneumonia) Status: Acute Plan: Based on up-to-date recommendations and algorithm patient was started on antibiotics as below -Continue Rocephin 2g @ 200mls/hr Q24 H IV (started 01/13), continue IV abx this and change to PO on Monday if she continues to improve, give 7 days oral ABx - Continue Azithromycin (01/13- 01/20) for 7 days -D/C isolation once TB test back and negative - Blood cultures no growth after 2 days - Sputum culture growing E coli; moderate budding yeast with pseudohyphae - Urinary legionella and pneumococcal Ags negative - Scheduled DuoNeb's every 4 hours - Albuterol nebulizers every 2 hours as needed for shortness of breath - Solu-Medrol 60 mg IV every 6 hours - Incentive spirometer to bedside - Sputum for AFB culture Infectious disease consulted for recommendations for HCAP and patient having a h /o +PPD testing; appreciate recs (3) COPD exacerbation Status: Acute Plan: DuoNeb every 4 hours scheduled Albuterol nebulizers every 2 hours as needed Solu-Medrol 60 mg IV every 6 hours - Status post Solu-Medrol 125 mg IV in the emergency department Antibiotics as above for HCAP Supplemental oxygen as needed to keep O2 sats between 88-92% Incentive spirometer to bedside Consider BiPAP if patient develops worsening SOB (4) Anemia Status: Acute Plan: - Stable, continue to monitor H/H (5) Hypertension Status: Chronic Plan: Patient BP 156/97 this AM Continue amlodipine 10 mg po daily Increase metoprolol 25 mg PO daily Monitor vitals q4h (6) Chronic pain Status: Chronic Plan: - Patient has a h/o chronic pain - Continue [place] 10/325 mg q6h prn pain 6-10 - Morphine 2 mg IV q4h prn breakthrough (7) Anxiety Status: Chronic Plan: Xanax 0.5 mg po q8h prn anxiety (8) Acute kidney injury Status: Resolved Plan: - Monitor renal function - Monitor I/Os (9) Vaginal irritation Status: Acute Plan: -Nystatin powder q12 (10) Nutrition, metabolism, and development symptoms Status: Acute Plan: Fluids: NS at 110 cc/hr Electrolytes: Continue to monitor and replete as necessary Nutrition: Heart healthy diet DVT ppx: Heparin 5,000 units subq q12h GI ppx: Protonix 40 mg IV daily (Giancarlo Hopkins MD R2) Giancarlo Hopkins MD R2 Jan 15, 2017 13:15 Brayan Duarte MD Jan 16, 2017 15:58
[2017-01-15] MEDS: cefTRIAXone INJ 2,000 MG in SODIUM CHLORIDE 0.9% INJ 100 ML IV SCH (13:32)
[2017-01-15] MEDS: PANTOPRAZOLE SODIUM 40 MG VIAL IV PUSH SCH (21:42)
[2017-01-16] VITALS (8 sets, daily range): BP systolic 133–156; BP diastolic 75–100; PULSE 87–104; RESP 18–20; TEMP 97–99; O2SAT 93–98
[2017-01-16] MEDS: RESP: IPRATROPIUM 0.5 MG/2.5 ML NEB NEB SCH ×7 (00:07→23:18)
[2017-01-16] MEDS: ALPRAZolam 0.5 MG TAB PO PRN (01:50)
[2017-01-16] MEDS: methylPREDNISolone SOD SUCC 125 MG/2 ML VIAL IVP SCH ×4 (01:51→20:25)
[2017-01-16] MEDS: SODIUM CHLORIDE 0.9% FLUSH 10 ML FLUSH IV FLUSH PRN (01:51)
[2017-01-16] MEDS: HEPARIN SODIUM - SQ 10,000 UNITS/ML VIAL SQ SCH ×2 (05:31→17:23)
[2017-01-16] MEDS: risperiDONE 0.5 MG TAB PO SCH ×2 (07:56→20:24)
[2017-01-16] MEDS: GABAPENTIN 300 MG CAP PO SCH ×3 (07:56→17:23)
[2017-01-16] MEDS: SERTRALINE HCL 50 MG TAB PO SCH (07:57)
[2017-01-16] MEDS: ACETAMINOPHEN/HYDROcodone 325 MG/10 MG TAB PO PRN ×2 (07:57→17:23)
[2017-01-16] MEDS: NYSTATIN 100,000 U/GM PWD 15 GM BTL TOPICAL SCH ×2 (07:57→20:25)
[2017-01-16] MEDS: AZITHROMYCIN 250 MG TAB PO SCH (07:57)
[2017-01-16] MEDS: SODIUM CHLORIDE 0.9% FLUSH 10 ML FLUSH IV FLUSH SCH ×2 (07:57→20:24)
[2017-01-16 08:42] LABS: HEMATOCRIT 36.6 % (35.0-46.0); MEAN CELL VOLUME 83.8 FL (80.0-100.0); MEAN CORPUSCULAR HEMOGLOBIN 26.8 PG (27.0-34.0); PLATELET COUNT 184 TH/MM3 (150-450); RED BLOOD COUNT 4.37 MIL/MM3 (4.00-5.30); RED CELL DISTRIBUTION WIDTH 17.8 % (11.6-17.2); REVIEW FLAG FINAL; WHITE BLOOD COUNT 11.9 TH/MM3 (4.0-11.0)
[2017-01-16] MEDS ORDERED: METOPROLOL SUCCINATE 25 MG EXTENDED RELEASE TAB PO SCH (09:00)
[2017-01-16 09:13] LABS: BICARBONATE 23.6 MEQ/L (21.0-32.0); POTASSIUM 3.9 MEQ/L (3.5-5.1)
--- NOTE | 2017-01-16 11:17 | HHI.FPPN ---
Subjective Remarks No acute events overnight. Pt sitting in chair and eating breakfast this AM. On 3L NC. 3BM yesterday. Afebrile. Denies pain, CP, SOB, swelling in legs, and N/ V. (Kizzy Maradiaga MD R1) Objective Vitals Vital Signs Date Time Temp Pulse Resp B/P Pulse Ox O2 Delivery O2 Flow Rate FiO2 01/16/17 10:22 95 Nasal Cannula 3.00 01/16/17 08:00 Nasal Cannula 3.00 01/16/17 04:00 97.9 88 20 153/93 95 01/16/17 04:00 Nasal Cannula 3.00 Humidified 01/16/17 00:00 98.2 87 20 133/76 95 01/16/17 00:00 Nasal Cannula 3.00 01/15/17 20:47 96 Nasal Cannula 3.00 01/15/17 20:00 98.2 102 20 149/97 95 01/15/17 20:00 Nasal Cannula 3.00 01/15/17 16:00 98.4 96 17 132/83 96 01/15/17 12:01 96 Nasal Cannula 3.00 01/15/17 12:00 98.7 100 19 146/90 96 I/O 01/15/17 01/15/17 01/15/17 01/16/17 01/16/17 01/16/17 07:00 15:00 23:00 07:00 15:00 23:00 Intake Total 480 ml 480 ml 180 ml Output Total 500 ml Balance -20 ml 480 ml 180 ml Intake Oral 480 ml 480 ml 180 ml Output Urine Total 500 ml # Voids 3 3 3 3 # Bowel Movements 0 2 1 0 (Kizzy Maradiaga MD R1) Result Diagram: 01/16/17 0655 01/16/17 0655 Imaging Last Impressions Chest X-Ray 01/10/17 1333 Signed Impressions: Service Date/Time: Tuesday, January 10, 2017 13:49 - CONCLUSION: Bibasilar infiltrates. Jozef Smith Jr., MD Objective Remarks GENERAL: Elderly female, sitting in chair, eating breakfast, in NAD NEURO: AOx3. Speech soft but not slurred. vacuum tester cans grossly intact. Motor grossly normal. SKIN: Warm and dry. Scattered ecchymoses primarily left distal arm. CARDIOVASCULAR: Tachycardic rate, regular rhythm without murmurs, rubs, or gallops. RESPIRATORY: Mild wheezing in lung bases. No accessory muscle use GASTROINTESTINAL: Abdomen soft, nontender, nondistended MUSCULOSKELETAL: No lower extremity edema or tenderness : erythematous area in left inguinal region and around vulva, no warmth, no lesions, no swelling, no inguinal LAD (Kizzy Maradiaga MD R1) A/P Assessment and Plan 71 year old female with a h/o of COPD on 3lpm home O2 and recent hospitalization for pneumonia one month ago presented with SOB and cough found to have bibasilar infiltrates on CXR. Discharge Planning Anticipate discharge home once medically stable Hospice consulted Patient may require PT at home (Kizzy Maradiaga MD R1) Attending Attestation Pt. examined and case discussed with resident physicians I have read the above note and agree with the assessment/plan as discussed with me I was involved in all medical decision making for this patient Brayan Duarte MD (Brayan Duarte MD) Problem List: (1) Sepsis Status: Acute Plan: Met sepsis criteria on admission due to HCAP Plan as below (2) HCAP (healthcare-associated pneumonia) Status: Acute Plan: Based on up-to-date recommendations and algorithm patient was started on antibiotics as below - change to Cefitin 500 mg BID today (7day course) - Continue Azithromycin (01/13- 01/20) for 7 days -D/C isolation once TB test back and negative -Discontinued Rocephin 2g @ 200mls/hr Q24 H IV (started 01/13-01/16) - Blood cultures no growth after 2 days - Sputum culture growing E coli; moderate budding yeast with pseudohyphae - Urinary legionella and pneumococcal Ags negative - Scheduled DuoNeb's every 4 hours - Albuterol nebulizers every 2 hours as needed for shortness of breath - Solu-Medrol 60 mg IV every 6 hours - Incentive spirometer to bedside - Sputum for AFB culture Infectious disease consulted for recommendations for HCAP and patient having a h /o +PPD testing; appreciate recs (3) COPD exacerbation Status: Acute Plan: DuoNeb every 4 hours scheduled Albuterol nebulizers every 2 hours as needed Solu-Medrol 60 mg IV every 6 hours - Status post Solu-Medrol 125 mg IV in the emergency department Antibiotics as above for HCAP Supplemental oxygen as needed to keep O2 sats between 88-92% Incentive spirometer to bedside Consider BiPAP if patient develops worsening SOB (4) Anemia Status: Acute Plan: - Stable, continue to monitor H/H (5) Hypertension Status: Chronic Plan: Patient BP 153/93 this AM amlodipine 10 mg po daily metoprolol 25 mg PO daily Monitor vitals q4h (6) Chronic pain Status: Chronic Plan: - Patient has a h/o chronic pain - Continue [place] 10/325 mg q6h prn pain 6-10 - Morphine 2 mg IV q4h prn breakthrough (7) Anxiety Status: Chronic Plan: Xanax 0.5 mg po q8h prn anxiety (8) Acute kidney injury Status: Resolved Plan: - Monitor renal function - Monitor I/Os (9) Vaginal irritation Status: Acute Plan: -Nystatin powder q12 (10) Nutrition, metabolism, and development symptoms Status: Acute Plan: Fluids: NS at 110 cc/hr Electrolytes: Continue to monitor and replete as necessary Nutrition: Heart healthy diet DVT ppx: Heparin 5,000 units subq q12h GI ppx: Protonix 40 mg IV daily (Kizzy Maradiaga MD R1) Kizzy Maradiaga MD R1 Jan 16, 2017 11:17 Brayan Duarte MD Jan 16, 2017 16:38
--- NOTE | 2017-01-16 12:42 | HHI.IDPN ---
Subjective Subjective Remarks Patient is a 71-year-old female, who lives at home with family, has known O2 dependent COPD, admitted to the hospital for further evaluation of increasing shortness of breath. Patient states that she is really not coughing much during the day, and does so mostly at night. She denies any chest pain. She does not know if she had any fever or chills or sweats. Denies any vomiting or diarrhea. No dysuria but she is incontinent. According to the record she was hospitalized in [facility] about a month ago and was treated for pneumonia. She was discharge on oral antibiotics. Patient is not febrile. Her white count on admission was 23,000. She had a PaO2 of 67 on ABG on 4 L nasal O2. Chest x-ray is showing by basilar alveolar infiltrates. There are some more information apparently that came up and it was a positive PPD skin testing on her. I tried to get more information from the patient as to whether she did have a positive PPD skin testing, and how long we'll go the skin testing was done. And is currently on Levaquin, Zosyn, and vancomycin. There is mention of severe reaction to penicillin, but so far patient has not had any reaction. She continues to be with significant shortness of breath at rest. Notes reviewed Temps ok Breathing better Sputum C/S E coli Antibiotics Ceftin Zithromax Lines PIV Past Medical History COPD on 3 LPM home O2 Anxiety/Depression HTN Per EMR, h/o chronic pain (+) PPD, could not confirm from patient, since she said negative PPD to me; nursing records showe(+) 20 years ago Past Surgical History Bilateral rotator cuff surgery Hysterectomy Allergies: Coded Allergies: Penicillin (Verified Allergy, Severe, 01/10/17) Quinine (Verified Allergy, Severe, ITCHING, 01/10/17) Ultram (Verified Allergy, Severe, Rash, 01/10/17) Objective . Vital Signs Date Time Temp Pulse Resp B/P Pulse Ox O2 Delivery O2 Flow Rate FiO2 01/16/17 10:22 95 Nasal Cannula 3.00 01/16/17 08:00 Nasal Cannula 3.00 01/16/17 04:00 97.9 88 20 153/93 95 01/16/17 04:00 Nasal Cannula 3.00 Humidified 01/16/17 00:00 98.2 87 20 133/76 95 01/16/17 00:00 Nasal Cannula 3.00 01/15/17 20:47 96 Nasal Cannula 3.00 01/15/17 20:00 98.2 102 20 149/97 95 01/15/17 20:00 Nasal Cannula 3.00 01/15/17 16:00 98.4 96 17 132/83 96 01/15/17 01/15/17 01/16/17 14:59 22:59 06:59 Intake Total 960 ml 180 ml Output Total 500 ml Balance 460 ml 180 ml Intake Oral 960 ml 180 ml Output Urine Total 500 ml # Voids 6 3 # Bowel Movements 3 0 . Laboratory Tests Test 01/15/17 01/16/17 01:04 06:55 White Blood Count 10.8 TH/MM3 11.9 TH/MM3 Red Blood Count 4.14 MIL/MM3 4.37 MIL/MM3 Hemoglobin 11.3 GM/DL 11.7 GM/DL Hematocrit 33.8 % 36.6 % Mean Corpuscular Volume 81.8 FL 83.8 FL Mean Corpuscular Hemoglobin 27.3 PG 26.8 PG Mean Corpuscular Hemoglobin 33.4 % 32.0 % Concent Red Cell Distribution Width 18.2 % 17.8 % Platelet Count 172 TH/MM3 184 TH/MM3 Mean Platelet Volume 7.7 FL 7.5 FL Neutrophils (%) (Auto) 89.8 % Lymphocytes (%) (Auto) 6.4 % Monocytes (%) (Auto) 3.6 % Eosinophils (%) (Auto) 0.0 % Basophils (%) (Auto) 0.2 % Neutrophils # (Auto) 9.7 TH/MM3 Lymphocytes # (Auto) 0.7 TH/MM3 Monocytes # (Auto) 0.4 TH/MM3 Eosinophils # (Auto) 0.0 TH/MM3 Basophils # (Auto) 0.0 TH/MM3 CBC Comment AUTO DIFF Differential Comment AUTO DIFF CONFIRMED Platelet Estimate NORMAL Platelet Morphology Comment NORMAL Ovalocytes 1+ Laboratory Tests Test 01/16/17 06:55 Sodium Level 141 MEQ/L Potassium Level 3.9 MEQ/L Chloride Level 106 MEQ/L Carbon Dioxide Level 23.6 MEQ/L Anion Gap 11 MEQ/L Blood Urea Nitrogen 37 MG/DL Creatinine 0.81 MG/DL Estimat Glomerular Filtration 70 ML/MIN Rate Random Glucose 112 MG/DL Calcium Level 9.0 MG/DL Microbiology Date/Time Procedure Status Source Growth 01/15/17 02:00 Acid Fast Stain Received Sputum Expectorated Sputum Pending 01/15/17 02:00 Mycobacterial Culture Received Sputum Expectorated Sputum Pending 01/15/17 02:00 Gram Stain - Final Resulted Sputum Expectorated Sputum 01/15/17 02:00 Sputum Culture Resulted Sputum Expectorated Sputum Pending 01/15/17 02:00 Fungal Smear - Final Resulted Sputum Expectorated Sputum MANY BUDDING YEAST WITH PSEUDOHYPHAE 01/15/17 02:00 Fungal Culture Resulted Sputum Expectorated Sputum Pending Imaging Last Impressions Chest X-Ray 01/10/17 1333 Signed Impressions: Service Date/Time: Tuesday, January 10, 2017 13:49 - CONCLUSION: Bibasilar infiltrates. Jozef Smith Jr., MD Physical Exam GENERAL: awake and alert, mild SOB at rest SKIN: Warm and dry. No generalized rash. Some purpura in her UE HEAD: Atraumatic. Normocephalic. No temporal wasting, or tenderness. EYES: [place] conjunctiva. No petechia or hemorrhage. Extraocular movements full and intact. No scleral icterus. No injection or drainage. EARS, NOSE AND THROAT: Nose without bleeding or purulent nasal discharge. No sinus tenderness. Mucous membranes pink and moist. NECK: Trachea midline. Supple and not tender, no meningeal signs CARDIOVASCULAR: Tachycardic, no murmurs, rubs or gallops heard RESPIRATORY: Poor air movement, decreased at bases ABDOMEN: Soft, nondistended, bowel sounds present and normoactive. Not tender. no guarding. No rebound. EXTREMITIES: No clubbing, cyanosis, or edema. No joint effusion, has good ROM. No calf tenderness. Well perfused and warm. NEUROLOGICAL: Awake and alert. Cranial nerves grossly intact. Poor historian PSYCHIATRIC: calm and cooperative. LINE: No evidence of infection Assessment & Plan Remarks IMPRESSION Pneumonia, bilateral, patient with O2 dependent COPD - sputum with E coli - per notes, she was hospitalized 1 month ago [facility] Per nursing records: (+) PPD 20 years ago - risk of reactivation at this stage, if (+) from 20 years ago, is very low Allergy to PCN - says severe, but has been tolerating Zosyn RECOMMENDATION Continue ceftin Continue Zithromax Follow-up CXR Clinically improving Await TB test D/C isolation once TB test back and negative Dimayuga,Mila G MD Jan 16, 2017 12:42
[2017-01-16] MEDS: CEFUROXIME AXETIL 500 MG TAB PO SCH ×2 (13:45→20:24)
--- NOTE | 2017-01-16 16:21 | RADRPT ---
EXAM DATE/TIME: 01/16/2017 15:16 [place] COMPARISON: CHEST SINGLE AP, January 10, 2017, 13:49. INDICATIONS : Evaluate pneumonia MEDICAL HISTORY : SURGICAL HISTORY : None. Congestive heart failure. Chronic obstructive pulmonary disease. ENCOUNTER: Subsequent ACUITY: 1 week PAIN SCORE: 0/10 LOCATION: Bilateral chest FINDINGS: There is worsening air space process in right upper and lower lung field since the prior exam. Left l lance is clear. The rest of the examination has not significantly changed. CONCLUSION: Worsening airspace process right lung highly suggestive of worsening pneumonia. Fantasma Almonte MD on January 16, 2017 at 16:19 Board Certified Radiologist. This report was verified electronically.
[2017-01-16] MEDS: METOPROLOL SUCCINATE 50 MG EXTENDED RELEASE TAB PO SCH (17:22)
[2017-01-16 19:57] LABS: M. TUBERCULOSIS PCR NOT DETECTED (NOT DETECT)
[2017-01-16] MEDS: PANTOPRAZOLE SODIUM 40 MG VIAL IV PUSH SCH (20:25)
[2017-01-17] VITALS (8 sets, daily range): BP systolic 129–162; BP diastolic 83–97; PULSE 81–90; RESP 16–20; TEMP 97–99.9; O2SAT 90–98
[2017-01-17] MEDS: methylPREDNISolone SOD SUCC 125 MG/2 ML VIAL IVP SCH ×4 (02:05→19:58)
[2017-01-17] MEDS: RESP: IPRATROPIUM 0.5 MG/2.5 ML NEB NEB SCH ×6 (03:41→23:39)
[2017-01-17] MEDS: HEPARIN SODIUM - SQ 10,000 UNITS/ML VIAL SQ SCH ×2 (05:33→17:29)
[2017-01-17] MEDS: ACETAMINOPHEN/HYDROcodone 325 MG/10 MG TAB PO PRN ×2 (08:03→17:35)
[2017-01-17] MEDS: METOPROLOL SUCCINATE 50 MG EXTENDED RELEASE TAB PO SCH (08:03)
[2017-01-17] MEDS: AZITHROMYCIN 250 MG TAB PO SCH (08:03)
[2017-01-17] MEDS: risperiDONE 0.5 MG TAB PO SCH ×2 (08:03→19:57)
[2017-01-17] MEDS: SODIUM CHLORIDE 0.9% FLUSH 10 ML FLUSH IV FLUSH SCH ×2 (08:03→19:57)
[2017-01-17] MEDS: GABAPENTIN 300 MG CAP PO SCH ×3 (08:03→17:29)
[2017-01-17] MEDS: SERTRALINE HCL 50 MG TAB PO SCH (08:03)
[2017-01-17] MEDS: CEFUROXIME AXETIL 500 MG TAB PO SCH ×2 (08:03→19:57)
[2017-01-17] MEDS: NYSTATIN 100,000 U/GM PWD 15 GM BTL TOPICAL SCH ×2 (08:04→19:57)
--- NOTE | 2017-01-17 11:55 | HHI.FPPN ---
Subjective Remarks No acute events overnight. Pt lying in bed this AM. Appears to be slightly sad this morning. Inquired about going home hospice and pain management. Reassured pt about pain management taken care by hospice at home. On 2L O2 NC. Afebrile. Denies CP, SOB, and N/V. (Kizzy Maradiaga MD R1) Objective Vitals Vital Signs Date Time Temp Pulse Resp B/P Pulse Ox O2 Delivery O2 Flow Rate FiO2 01/17/17 08:10 94 Nasal Cannula 3.00 01/17/17 08:00 94 Nasal Cannula 2.00 01/17/17 08:00 99.1 90 18 162/94 90 01/17/17 04:00 Nasal Cannula 3.00 01/17/17 04:00 98.5 86 20 129/83 98 01/17/17 00:00 Nasal Cannula 3.00 01/17/17 00:00 98.2 83 17 157/97 95 01/16/17 20:00 99.0 89 18 151/91 98 01/16/17 20:00 Nasal Cannula 3.00 01/16/17 16:00 97.0 97 20 156/89 97 01/16/17 15:57 95 Nasal Cannula 3.00 01/16/17 12:00 97.0 104 20 153/100 95 I/O 01/16/17 01/16/17 01/16/17 01/17/17 01/17/17 01/17/17 07:00 15:00 23:00 07:00 15:00 23:00 Intake Total 180 ml 240 ml 240 ml 180 ml Balance 180 ml 240 ml 240 ml 180 ml Intake Oral 180 ml 240 ml 240 ml 180 ml # Voids 3 1 2 3 # Bowel Movements 0 3 2 1 (Kizzy Maradiaga MD R1) Result Diagram: 01/16/17 0655 01/16/17 0655 Imaging Last Impressions Chest X-Ray 01/16/17 0000 Signed Impressions: Service Date/Time: Monday, January 16, 2017 15:16 - CONCLUSION: Worsening airspace process right lung highly suggestive of worsening pneumonia. Fantasma Almonte MD Objective Remarks GENERAL: Elderly female, lying in bed, appears slightly sad that she will be going home NEURO: AOx3. Speech soft but not slurred. 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 Motor grossly normal. SKIN: Warm and dry. Scattered ecchymoses primarily left distal arm. CARDIOVASCULAR: regular rate and rhythm without murmurs, rubs, or gallops. RESPIRATORY: CTAB. No accessory muscle use GASTROINTESTINAL: Abdomen soft, nontender, nondistended MUSCULOSKELETAL: No lower extremity edema or tenderness : erythematous area in left inguinal region and around vulva, no warmth, no lesions, no swelling, no inguinal LAD (Kizzy Maradiaga MD R1) A/P Assessment and Plan 71 year old female with a h/o of COPD on 3lpm home O2 and recent hospitalization for pneumonia one month ago presented with SOB and cough found to have bibasilar infiltrates on CXR. Discharge Planning Anticipate discharge home once medically stable Hospice consulted Patient may require PT at home (Kizzy Maradiaga MD R1) Attending Attestation Patient examined and case discussed with resident physicians I have read the above note and agree with the assessment/plan as discussed with me I was involved in all medical decision making for this patient Brayan Duarte M.D. (Brayan Duarte MD) Problem List: (1) Sepsis Status: Acute Plan: Met sepsis criteria on admission due to HCAP Plan as below (2) HCAP (healthcare-associated pneumonia) Status: Acute Plan: Based on up-to-date recommendations and algorithm patient was started on antibiotics as below - Cefitin 500 mg BID (01/16--) (7day course) - Continue Azithromycin (01/13- 01/20) for 7 days -TB negative, discharged TB precautions -Discontinued Rocephin 2g @ 200mls/hr Q24 H IV (started 01/13-01/16) - Blood cultures no growth after 2 days - Sputum culture growing E coli; moderate budding yeast with pseudohyphae - Urinary legionella and pneumococcal Ags negative - Scheduled DuoNeb's every 4 hours - Albuterol nebulizers every 2 hours as needed for shortness of breath - Solu-Medrol 60 mg IV every 6 hours - Incentive spirometer to bedside - Sputum for AFB culture Infectious disease consulted for recommendations for HCAP and patient having a h /o +PPD testing; appreciate recs (3) COPD exacerbation Status: Acute Plan: Pt on 2 L O2 NC DuoNeb every 4 hours scheduled Albuterol nebulizers every 2 hours as needed Solu-Medrol 60 mg IV every 6 hours - Status post Solu-Medrol 125 mg IV in the emergency department Antibiotics as above for HCAP Supplemental oxygen as needed to keep O2 sats between 88-92% Incentive spirometer to bedside Consider BiPAP if patient develops worsening SOB (4) Anemia Status: Acute Plan: - Stable, continue to monitor H/H (5) Hypertension Status: Chronic Plan: Patient BP 162/94 this AM amlodipine 10 mg po daily metoprolol 50 mg PO daily Monitor vitals q4h (6) Chronic pain Status: Chronic Plan: - Patient has a h/o chronic pain - Continue [place] 10/325 mg q6h prn pain 6-10 - Morphine 2 mg IV q4h prn breakthrough (7) Anxiety Status: Chronic Plan: Xanax 0.5 mg po q8h prn anxiety (8) Acute kidney injury Status: Resolved Plan: - Monitor renal function - Monitor I/Os (9) Vaginal irritation Status: Acute Plan: -Nystatin powder q12 (10) Nutrition, metabolism, and development symptoms Status: Acute Plan: Fluids: NS at 110 cc/hr Electrolytes: Continue to monitor and replete as necessary Nutrition: Heart healthy diet DVT ppx: Heparin 5,000 units subq q12h GI ppx: Protonix 40 mg IV daily (Kizzy Maradiaga MD R1) Kizzy Maradiaga MD R1 Jan 17, 2017 11:55 Brayan Duarte MD Jan 17, 2017 14:00
--- NOTE | 2017-01-17 12:02 | HHI.IDPN ---
Subjective Subjective Remarks Patient is a 71-year-old female, who lives at home with family, has known O2 dependent COPD, admitted to the hospital for further evaluation of increasing shortness of breath. Patient states that she is really not coughing much during the day, and does so mostly at night. She denies any chest pain. She does not know if she had any fever or chills or sweats. Denies any vomiting or diarrhea. No dysuria but she is incontinent. According to the record she was hospitalized in [facility] about a month ago and was treated for pneumonia. She was discharge on oral antibiotics. Patient is not febrile. Her white count on admission was 23,000. She had a PaO2 of 67 on ABG on 4 L nasal O2. Chest x-ray is showing by basilar alveolar infiltrates. There are some more information apparently that came up and it was a positive PPD skin testing on her. I tried to get more information from the patient as to whether she did have a positive PPD skin testing, and how long we'll go the skin testing was done. And is currently on Levaquin, Zosyn, and vancomycin. There is mention of severe reaction to penicillin, but so far patient has not had any reaction. She continues to be with significant shortness of breath at rest. Notes reviewed Temps ok, occ 99 Breathing better Keeps removing her nasal O2 Confused Repeat CXR worse RUL infiltrate TB negative, off isolation Sputum C/S E coli Antibiotics Ceftin Zithromax Lines PIV Past Medical History COPD on 3 LPM home O2 Anxiety/Depression HTN Per EMR, h/o chronic pain (+) PPD, could not confirm from patient, since she said negative PPD to me; nursing records showe(+) 20 years ago Past Surgical History Bilateral rotator cuff surgery Hysterectomy Allergies: Coded Allergies: Penicillin (Verified Allergy, Severe, 01/10/17) Quinine (Verified Allergy, Severe, ITCHING, 01/10/17) Ultram (Verified Allergy, Severe, Rash, 01/10/17) Objective . Vital Signs Date Time Temp Pulse Resp B/P Pulse Ox O2 Delivery O2 Flow Rate FiO2 01/17/17 08:10 94 Nasal Cannula 3.00 01/17/17 08:00 94 Nasal Cannula 2.00 01/17/17 08:00 99.1 90 18 162/94 90 01/17/17 04:00 Nasal Cannula 3.00 01/17/17 04:00 98.5 86 20 129/83 98 01/17/17 00:00 Nasal Cannula 3.00 01/17/17 00:00 98.2 83 17 157/97 95 01/16/17 20:00 99.0 89 18 151/91 98 01/16/17 20:00 Nasal Cannula 3.00 01/16/17 16:00 97.0 97 20 156/89 97 01/16/17 15:57 95 Nasal Cannula 3.00 01/16/17 12:00 97.0 104 20 153/100 95 01/16/17 01/16/17 01/17/17 14:59 22:59 06:59 Intake Total 240 ml 240 ml 180 ml Balance 240 ml 240 ml 180 ml Intake Oral 240 ml 240 ml 180 ml # Voids 1 2 3 # Bowel Movements 3 2 1 . Laboratory Tests Test 01/16/17 06:55 White Blood Count 11.9 TH/MM3 Red Blood Count 4.37 MIL/MM3 Hemoglobin 11.7 GM/DL Hematocrit 36.6 % Mean Corpuscular Volume 83.8 FL Mean Corpuscular Hemoglobin 26.8 PG Mean Corpuscular Hemoglobin 32.0 % Concent Red Cell Distribution Width 17.8 % Platelet Count 184 TH/MM3 Mean Platelet Volume 7.5 FL Laboratory Tests Test 01/16/17 06:55 Sodium Level 141 MEQ/L Potassium Level 3.9 MEQ/L Chloride Level 106 MEQ/L Carbon Dioxide Level 23.6 MEQ/L Anion Gap 11 MEQ/L Blood Urea Nitrogen 37 MG/DL Creatinine 0.81 MG/DL Estimat Glomerular Filtration 70 ML/MIN Rate Random Glucose 112 MG/DL Calcium Level 9.0 MG/DL Microbiology Date/Time Procedure Status Source Growth 01/15/17 02:00 Acid Fast Stain - Final Resulted Sputum Expectorated Sputum NO ACID FAST BACILLI SEEN 01/15/17 02:00 Mycobacterial Culture Resulted Sputum Expectorated Sputum Pending 01/15/17 02:00 Gram Stain - Final Complete Sputum Expectorated Sputum 01/15/17 02:00 Sputum Culture - Final Complete Sputum Expectorated Sputum HEAVY GROWTH NORMAL RESPIRATORY ACE 01/15/17 02:00 Fungal Smear - Final Resulted Sputum Expectorated Sputum MANY BUDDING YEAST WITH PSEUDOHYPHAE 01/15/17 02:00 Fungal Culture Resulted Sputum Expectorated Sputum Pending Imaging Chest X-Ray 01/16/17 0000 Signed Impressions: Service Date/Time: Monday, January 16, 2017 15:16 - CONCLUSION: Worsening airspace process right lung highly suggestive of worsening pneumonia. Fantasma Almonte MD Chest X-Ray 01/10/17 1333 Signed Impressions: Service Date/Time: Tuesday, January 10, 2017 13:49 - CONCLUSION: Bibasilar infiltrates. Jozef Smith Jr., MD Physical Exam GENERAL: awake and alert, comfortable at rest, on nasal O2 SKIN: Warm and dry. No generalized rash. Some purpura in her UE HEAD: Atraumatic. Normocephalic. No temporal wasting, or tenderness. EYES: [place] conjunctiva. No petechia or hemorrhage. Extraocular movements full and intact. No scleral icterus. No injection or drainage. EARS, NOSE AND THROAT: Nose without bleeding or purulent nasal discharge. No sinus tenderness. Mucous membranes pink and moist. NECK: Trachea midline. Supple and not tender, no meningeal signs CARDIOVASCULAR: Tachycardic, no murmurs, rubs or gallops heard RESPIRATORY: Poor air movement, decreased at bases ABDOMEN: Soft, nondistended, bowel sounds present and normoactive. Not tender. no guarding. No rebound. EXTREMITIES: No clubbing, cyanosis, or edema. No joint effusion, has good ROM. No calf tenderness. Well perfused and warm. NEUROLOGICAL: Awake and alert. Cranial nerves grossly intact. Poor historian PSYCHIATRIC: calm and cooperative. LINE: No evidence of infection Assessment & Plan Remarks IMPRESSION Pneumonia, bilateral, patient with O2 dependent COPD - sputum with E coli - per notes, she was hospitalized [address] [facility] - CXR worse, but breathing better Per nursing records: (+) PPD 20 years ago - risk of reactivation at this stage, if (+) from 20 years ago, is very low Allergy to PCN - says severe, but has been tolerating Zosyn RECOMMENDATION Continue ceftin Continue Zithromax Add Falgyl ?CT chest to evaluate R hilum Clinically improving Mila Dunlap MD Jan 17, 2017 12:02
[2017-01-17 12:42] LABS: AUTOMATED NEUTROPHIL # 12.5 TH/MM3 (1.8-7.7); BASOPHIL % 0.2 % (0.0-2.0); HEMATOCRIT 37.5 % (35.0-46.0); LYMPH % 5.5 % (9.0-44.0); LYMPHOCYTE # 0.8 TH/MM3 (1.0-4.8); MEAN CELL VOLUME 83.4 FL (80.0-100.0); MEAN CORPUSCULAR HEMOGLOBIN 26.5 PG (27.0-34.0); MEAN CORPUSCULAR HGB CONC 31.8 % (32.0-36.0); NEUT % 89.3 % (16.0-70.0); PLATELET COUNT 186 TH/MM3 (150-450)
[2017-01-17 12:47] LABS: HEMO FLAGS AUTO DIFF
[2017-01-17 13:02] LABS: POTASSIUM 4.4 MEQ/L (3.5-5.1)
[2017-01-17] MEDS: metroNIDAZOLE 500 MG TAB PO SCH ×2 (13:35→22:17)
[2017-01-17 14:36] LABS: BANDS 5 % (0-6); NEUTROPHIL # MANUAL DIFF 12.3 TH/MM3 (1.8-7.7); OVALOCYTES 1+ (NORMAL); PLATELET ESTIMATE SMEAR NORMAL (NORMAL); PLATELET MORPHOLOGY NORMAL (NORMAL); POLYS (SEG NEUTROPHILS) 83 % (16-70); SCAN/DIFF FINAL DIFF MANUAL; WBC DIFF SAMPLE 100
--- NOTE | 2017-01-17 15:48 | RADRPT ---
EXAM DATE/TIME: 01/17/2017 14:52 [place] COMPARISON: No previous studies available for comparison. INDICATIONS : Right infiltrate RADIATION DOSE: 6.11 CTDIvol (mGy) MEDICAL HISTORY : Hypertension. Chronic obstructive pulmonary disease. Hernia, hiatal. SURGICAL HISTORY : Hysterectomy. Abdominal tumor ENCOUNTER: Initial ACUITY: 1 day PAIN SCALE: 9/10 LOCATION: chest TECHNIQUE: Volumetric scanning of the chest was performed. Using automated exposure control and adjustment of t he mA and/or kV according to patient size, radiation dose was kept as low as reasonably achievable to obtain optimal diagnostic quality images. DICOM format image data is available electronically for r eview and comparison. Follow-up recommendations for incidentally detected pulmonary nodules are based at a minimum on nodul e size and patient risk factors according to Fleischner Society Guidelines. FINDINGS: The right hemithorax is congenitally smaller than the left hemithorax. There is also a very large hia gerald hernia which displaces the mediastinum slightly to the right. The findings on the right 5 on ches t radiograph appear to correlate mostly with some compressive atelectasis and scarring. No dense cons olidation or air bronchograms. Trace pleural fluid present bilaterally. Moderate to severe coronary calcifications. No acute findings in the upper abdomen. CONCLUSION: 1. 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 No definite pneumonic infiltrate. Small bilateral pleural effu sions. Scattered parenchymal scarring in the lungs. Moderate to severe coronary calcifications. 2. Healing anterior right third and fourth rib fractures. Joaquin Merrill MD on January 17, 2017 at 15:42 Board Certified Radiologist. This report was verified electronically.
[2017-01-17] MEDS: PANTOPRAZOLE SODIUM 40 MG VIAL IV PUSH SCH (19:57)
[2017-01-18] VITALS: BP 157/84; PULSE 91; RESP 16; TEMP 98.2; O2SAT 93
[2017-01-18] MEDS: methylPREDNISolone SOD SUCC 125 MG/2 ML VIAL IVP SCH ×3 (02:42→14:14)
[2017-01-18] MEDS: RESP: IPRATROPIUM 0.5 MG/2.5 ML NEB NEB SCH ×2 (03:36→07:34)
[2017-01-18 04:00] VITALS: BP 146/102; PULSE 86; RESP 16; TEMP 98.5; O2SAT 95
[2017-01-18] MEDS: HEPARIN SODIUM - SQ 10,000 UNITS/ML VIAL SQ SCH ×2 (06:22→17:07)
[2017-01-18] MEDS: metroNIDAZOLE 500 MG TAB PO SCH ×2 (06:22→14:13)
[2017-01-18 07:30] VITALS: O2SAT 93
[2017-01-18 08:00] VITALS: BP 154/92; PULSE 90; RESP 18; TEMP 98; O2SAT 95
[2017-01-18] MEDS: risperiDONE 0.5 MG TAB PO SCH (08:23)
[2017-01-18] MEDS: SERTRALINE HCL 50 MG TAB PO SCH (08:23)
[2017-01-18] MEDS: METOPROLOL SUCCINATE 50 MG EXTENDED RELEASE TAB PO SCH (08:23)
[2017-01-18] MEDS: AZITHROMYCIN 250 MG TAB PO SCH (08:23)
[2017-01-18] MEDS: GABAPENTIN 300 MG CAP PO SCH ×3 (08:23→17:07)
[2017-01-18] MEDS: CEFUROXIME AXETIL 500 MG TAB PO SCH (08:24)
[2017-01-18] MEDS: NYSTATIN 100,000 U/GM PWD 15 GM BTL TOPICAL SCH (08:24)
[2017-01-18] MEDS: ACETAMINOPHEN/HYDROcodone 325 MG/10 MG TAB PO PRN ×2 (08:24→14:13)
[2017-01-18] MEDS: SODIUM CHLORIDE 0.9% FLUSH 10 ML FLUSH IV FLUSH SCH (08:24)
[2017-01-18 08:37] LABS: AUTOMATED NEUTROPHIL # 11.1 TH/MM3 (1.8-7.7); BASOPHIL % 0.1 % (0.0-2.0); LYMPH % 4.7 % (9.0-44.0); LYMPHOCYTE # 0.6 TH/MM3 (1.0-4.8); MEAN CELL VOLUME 82.2 FL (80.0-100.0); MEAN CORPUSCULAR HEMOGLOBIN 27.1 PG (27.0-34.0); MEAN CORPUSCULAR HGB CONC 32.9 % (32.0-36.0); MONO % 3.1 % (0.0-8.0); NEUT % 92.1 % (16.0-70.0); PLATELET COUNT 182 TH/MM3 (150-450); RED BLOOD COUNT 4.38 MIL/MM3 (4.00-5.30); RED CELL DISTRIBUTION WIDTH 17.6 % (11.6-17.2)
[2017-01-18 08:40] LABS: HEMO FLAGS AUTO DIFF
[2017-01-18 09:13] LABS: BICARBONATE 24.2 MEQ/L (21.0-32.0)
--- NOTE | 2017-01-18 09:19 | HHI.FPPN ---
Subjective Remarks No acute events overnight. Pt lying in bed on her left side. O2 NC was removed yesterday per nurse. Pt O2 sat at 95 on room air this AM. Complains of congestion. Denies cough, wheezing, CP, and SOB. (Kizzy Maradiaga MD R1) Objective Vitals Vital Signs Date Time Temp Pulse Resp B/P Pulse Ox O2 Delivery O2 Flow Rate FiO2 01/18/17 08:00 98.0 90 18 154/92 95 01/18/17 04:00 98.5 86 16 146/102 95 01/18/17 00:00 98.2 91 16 157/84 93 01/18/17 00:00 Room Air 01/17/17 20:00 99.1 81 16 142/85 94 01/17/17 20:00 Room Air 01/17/17 16:00 99.9 84 18 153/90 92 01/17/17 16:00 92 Room Air 01/17/17 15:55 95 Nasal Cannula 3.00 01/17/17 13:41 90 Nasal Cannula 1.00 01/17/17 12:00 97.0 87 18 137/86 95 01/17/17 12:00 Nasal Cannula 2.00 I/O 01/17/17 01/17/17 01/17/17 01/18/17 01/18/17 01/18/17 07:00 15:00 23:00 07:00 15:00 23:00 Intake Total 180 ml 480 ml Balance 180 ml 480 ml Intake Oral 180 ml 480 ml # Voids 3 3 1 1 # Bowel Movements 1 3 1 (Kizzy Maradiaga MD R1) Result Diagram: 01/18/17 0502 01/18/17 0502 Imaging Last Impressions Chest CT 01/17/17 0000 Signed Impressions: Service Date/Time: Tuesday, January 17, 2017 14:52 - CONCLUSION: 1. 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 No definite pneumonic infiltrate. Small bilateral pleural effusions. Scattered parenchymal scarring in the lungs. Moderate to severe coronary calcifications. 2. Healing anterior right third and fourth rib fractures. Joaquin Merrill MD Chest X-Ray 01/16/17 0000 Signed Impressions: Service Date/Time: Monday, January 16, 2017 15:16 - CONCLUSION: Worsening airspace process right lung highly suggestive of worsening pneumonia. Fantasma Almonet MD Objective Remarks GENERAL: Elderly female, lying in bed on her left side NEURO: AOx3. Speech soft but not slurred. 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 Motor grossly normal. SKIN: Warm and dry. Scattered ecchymoses primarily left distal arm. CARDIOVASCULAR: regular rate and rhythm without murmurs, rubs, or gallops. RESPIRATORY: CTAB. No accessory muscle use GASTROINTESTINAL: Abdomen soft, nontender, nondistended MUSCULOSKELETAL: No lower extremity edema or tenderness : erythematous area in left inguinal region and around vulva, no warmth, no lesions, no swelling, no inguinal LAD (Kizzy Maradiaga MD R1) A/P Assessment and Plan 71 year old female with a h/o of COPD on 3lpm home O2 and recent hospitalization for pneumonia one month ago presented with SOB and cough found to have bibasilar infiltrates on CXR. Discharge Planning Anticipate discharge home once medically stable Hospice consulted Patient may require PT at home (Kizzy Maradiaga MD R1) Attending Attestation Pt. examined and case discussed with resident physicians I have read the above note and agree with the assessment/plan as discussed with me I was involved in all medical decision making for this patient Brayan Duarte MD (Brayan Duarte MD) Problem List: (1) Sepsis Status: Acute Plan: Met sepsis criteria on admission due to HCAP Plan as below (2) HCAP (healthcare-associated pneumonia) Status: Acute Plan: Infectious disease consulted for recommendations for HCAP and patient having a h/o +PPD testing; appreciate recs - Cefitin 500 mg BID (01/16-01/22-) (7day course) - Continue Azithromycin (01/13- 01/20) for 7 days - Flagyl 500mg PO q8h -TB PCR negative -Discontinued Rocephin 2g @ 200mls/hr Q24 H IV (started 01/13-01/16) - Blood cultures no growth after 2 days - Sputum culture growing E coli; moderate budding yeast with pseudohyphae - Urinary legionella and pneumococcal Ags negative - Scheduled DuoNeb's every 4 hours - Albuterol nebulizers every 2 hours as needed for shortness of breath - Solu-Medrol 60 mg IV every 6 hours - Incentive spirometer to bedside - Sputum for AFB culture (3) COPD exacerbation Status: Acute Plan: Pt currently on room air, sat 95% DuoNeb every 4 hours scheduled Albuterol nebulizers every 2 hours as needed Solu-Medrol 60 mg IV every 6 hours - Status post Solu-Medrol 125 mg IV in the emergency department Mucomyst 2mL Neb q6h Antibiotics as above for HCAP Supplemental oxygen as needed to keep O2 sats between 88-92% Incentive spirometer to bedside Consider BiPAP if patient develops worsening SOB (4) Anemia Status: Acute Plan: - Stable, continue to monitor H/H (5) Hypertension Status: Chronic Plan: Patient BP 154/92 this AM amlodipine 10 mg po daily metoprolol 50 mg PO daily Monitor vitals q4h (6) Chronic pain Status: Chronic Plan: - Patient has a h/o chronic pain - Continue [place] 10/325 mg q6h prn pain 6-10 - Morphine 2 mg IV q4h prn breakthrough (7) Anxiety Status: Chronic Plan: Xanax 0.5 mg po q8h prn anxiety (8) Acute kidney injury Status: Resolved Plan: - Monitor renal function - Monitor I/Os (9) Vaginal irritation Status: Acute Plan: -Nystatin powder q12 (10) Nutrition, metabolism, and development symptoms Status: Acute Plan: Fluids: NS at 110 cc/hr Electrolytes: Continue to monitor and replete as necessary Nutrition: Heart healthy diet DVT ppx: Heparin 5,000 units subq q12h GI ppx: Protonix 40 mg IV daily (Kizzy Maradiaga MD R1) Kizzy Maradiaga MD R1 Jan 18, 2017 09:19 Brayan Duarte MD Jan 18, 2017 16:43
[2017-01-18 10:35] LABS: SCAN/DIFF AUTO DIFF CONFIRMED
[2017-01-18] MEDS: RESP: ACETYLCYSTEINE 10% 30 ML NEB NEB SCH ×2 (11:00→16:00)
[2017-01-18] MEDS: RESP: ALBUTEROL 2.5 MG/IPRATROPIUM 0.5 MG NEB (SCH) NEB ×2 (11:44→15:41)
[2017-01-18 12:00] VITALS: BP 136/87; PULSE 102; RESP 18; TEMP 98.4; O2SAT 91
--- NOTE | 2017-01-18 15:46 | HHI.IDPN ---
Subjective Subjective Remarks Patient is a 71-year-old female, who lives at home with family, has known O2 dependent COPD, admitted to the hospital for further evaluation of increasing shortness of breath. Patient states that she is really not coughing much during the day, and does so mostly at night. She denies any chest pain. She does not know if she had any fever or chills or sweats. Denies any vomiting or diarrhea. No dysuria but she is incontinent. According to the record she was hospitalized in [facility] about a month ago and was treated for pneumonia. She was discharge on oral antibiotics. Patient is not febrile. Her white count on admission was 23,000. She had a PaO2 of 67 on ABG on 4 L nasal O2. Chest x-ray is showing by basilar alveolar infiltrates. There are some more information apparently that came up and it was a positive PPD skin testing on her. I tried to get more information from the patient as to whether she did have a positive PPD skin testing, and how long we'll go the skin testing was done. And is currently on Levaquin, Zosyn, and vancomycin. There is mention of severe reaction to penicillin, but so far patient has not had any reaction. She continues to be with significant shortness of breath at rest. Notes reviewed Temps ok Breathing better CT chest with mostly compressive atelectasis due to large HH Antibiotics Ceftin Zithromax Flagyl Lines PIV Past Medical History COPD on 3 LPM home O2 Anxiety/Depression HTN Per EMR, h/o chronic pain (+) PPD, could not confirm from patient, since she said negative PPD to me; nursing records showe(+) 20 years ago Past Surgical History Bilateral rotator cuff surgery Hysterectomy Allergies: Coded Allergies: Penicillin (Verified Allergy, Severe, 01/10/17) Quinine (Verified Allergy, Severe, ITCHING, 01/10/17) Ultram (Verified Allergy, Severe, Rash, 01/10/17) Objective . Vital Signs Date Time Temp Pulse Resp B/P Pulse Ox O2 Delivery O2 Flow Rate FiO2 01/18/17 12:37 Room Air 01/18/17 08:00 98.0 90 18 154/92 95 01/18/17 08:00 Room Air 01/18/17 07:30 93 21 01/18/17 04:00 98.5 86 16 146/102 95 01/18/17 00:00 98.2 91 16 157/84 93 01/18/17 00:00 Room Air 01/17/17 20:00 99.1 81 16 142/85 94 01/17/17 20:00 Room Air 01/17/17 16:00 99.9 84 18 153/90 92 01/17/17 16:00 92 Room Air 01/17/17 15:55 95 Nasal Cannula 3.00 01/17/17 01/17/17 01/18/17 15:00 23:00 07:00 Intake Total 480 ml Balance 480 ml Intake Oral 480 ml # Voids 3 1 1 # Bowel Movements 3 1 . Laboratory Tests Test 01/17/17 01/18/17 10:43 05:02 White Blood Count 14.0 TH/MM3 12.0 TH/MM3 Red Blood Count 4.50 MIL/MM3 4.38 MIL/MM3 Hemoglobin 11.9 GM/DL 11.9 GM/DL Hematocrit 37.5 % 36.0 % Mean Corpuscular Volume 83.4 FL 82.2 FL Mean Corpuscular Hemoglobin 26.5 PG 27.1 PG Mean Corpuscular Hemoglobin 31.8 % 32.9 % Concent Red Cell Distribution Width 18.0 % 17.6 % Platelet Count 186 TH/MM3 182 TH/MM3 Mean Platelet Volume 7.8 FL 8.1 FL Neutrophils (%) (Auto) 89.3 % 92.1 % Lymphocytes (%) (Auto) 5.5 % 4.7 % Monocytes (%) (Auto) 5.0 % 3.1 % Eosinophils (%) (Auto) 0.0 % 0.0 % Basophils (%) (Auto) 0.2 % 0.1 % Neutrophils # (Auto) 12.5 TH/MM3 11.1 TH/MM3 Lymphocytes # (Auto) 0.8 TH/MM3 0.6 TH/MM3 Monocytes # (Auto) 0.7 TH/MM3 0.4 TH/MM3 Eosinophils # (Auto) 0.0 TH/MM3 0.0 TH/MM3 Basophils # (Auto) 0.0 TH/MM3 0.0 TH/MM3 CBC Comment AUTO DIFF AUTO DIFF Differential Total Cells 100 Counted Neutrophils % (Manual) 83 % Band Neutrophils % 5 % Lymphocytes % 6 % Monocytes % 6 % Neutrophils # (Manual) 12.3 TH/MM3 Differential Comment FINAL DIFF AUTO DIFF MANUAL CONFIRMED Platelet Estimate NORMAL Platelet Morphology Comment NORMAL Ovalocytes 1+ Laboratory Tests Test 01/17/17 01/18/17 10:43 05:02 Sodium Level 144 MEQ/L 140 MEQ/L Potassium Level 4.4 MEQ/L 4.0 MEQ/L Chloride Level 109 MEQ/L 105 MEQ/L Carbon Dioxide Level 23.0 MEQ/L 24.2 MEQ/L Anion Gap 12 MEQ/L 11 MEQ/L Blood Urea Nitrogen 33 MG/DL 26 MG/DL Creatinine 0.71 MG/DL 0.54 MG/DL Estimat Glomerular Filtration 82 ML/MIN 112 ML/MIN Rate Random Glucose 81 MG/DL 75 MG/DL Calcium Level 8.8 MG/DL 8.9 MG/DL Imaging Chest X-Ray 01/16/17 0000 Signed Impressions: Service Date/Time: Monday, January 16, 2017 15:16 - CONCLUSION: Worsening airspace process right lung highly suggestive of worsening pneumonia. Fantasma Almonte MD Chest X-Ray 01/10/17 1333 Signed Impressions: Service Date/Time: Tuesday, January 10, 2017 13:49 - CONCLUSION: Bibasilar infiltrates. Jozef Smith Jr., MD Physical Exam GENERAL: awake and alert, comfortable at rest, on nasal O2 SKIN: Warm and dry. No generalized rash. Some purpura in her UE HEAD: Atraumatic. Normocephalic. No temporal wasting, or tenderness. EYES: [place] conjunctiva. No petechia or hemorrhage. Extraocular movements full and intact. No scleral icterus. No injection or drainage. EARS, NOSE AND THROAT: Nose without bleeding or purulent nasal discharge. No sinus tenderness. Mucous membranes pink and moist. NECK: Trachea midline. Supple and not tender, no meningeal signs CARDIOVASCULAR: Tachycardic, no murmurs, rubs or gallops heard RESPIRATORY: Poor air movement, decreased at bases ABDOMEN: Soft, nondistended, bowel sounds present and normoactive. Not tender. no guarding. No rebound. EXTREMITIES: No clubbing, cyanosis, or edema. No joint effusion, has good ROM. No calf tenderness. Well perfused and warm. NEUROLOGICAL: Awake and alert. Cranial nerves grossly intact. Poor historian PSYCHIATRIC: calm and cooperative. LINE: No evidence of infection Assessment & Plan Remarks IMPRESSION Pneumonia, bilateral, patient with O2 dependent COPD - sputum with E coli - per notes, she was hospitalized 1 month ago [facility] - CXR worse, but breathing better Per nursing records: (+) PPD 20 years ago - risk of reactivation at this stage, if (+) from 20 years ago, is very low Allergy to PCN - says severe, but has been tolerating Zosyn RECOMMENDATION Continue ceftin Continue Zithromax Stop Falgyl End date ordered in [place] for Abx Clinically improving I will be available prn She is stable from ID standpoint for D/C Mila Dunlap MD Jan 18, 2017 15:46
[2017-01-18 16:00] VITALS: BP 130/86; PULSE 100; RESP 18; TEMP 97; O2SAT 93
--- NOTE | 2017-01-18 16:22 | HHI.DCPOC ---
Discharge Care Plan Diagnosis: (1) HCAP (healthcare-associated pneumonia) (2) COPD exacerbation (3) Sepsis Goals to Promote Your Health * To prevent worsening of your condition and complications, follow up with your primary care physician as instructed and continue to follow with Hospice. Directions to Meet Your Goals Take your medications as prescribed Follow your dietary instruction Follow activity as directed Keep your appointments as scheduled Take your immunizations and boosters as scheduled If your symptoms worsen call your PCP, if no PCP go to Urgent Care Center or Emergency Room Smoking is Dangerous to Your Health. Avoid second hand smoke Call the 24-hour hour crisis hotline for domestic abuse at Filiberto Hernandez MD R1 Jan 18, 2017 16:22 Brayan Duarte MD Jan 18, 2017 17:26
[2017-01-18] MEDS ORDERED: CEFU1TAB20 PO (16:27)
[2017-01-18] MEDS ORDERED: METO50TA11 PO (16:27)
[2017-01-18] MEDS ORDERED: PRED20 PO (16:27)
[2017-01-18] MEDS ORDERED: AZIT250T3 PO (16:27)
[2017-01-18] MEDS ORDERED: AMLO10 PO (16:27)
== END 2017-01-18 18:08 | disposition hospice, home (50) | DRG 871 ==
LOC: NEPE 13:06 → NEDA 15:50 → OBSVTOIN 16:32 → NEDH 20:56 → HOCB 01-11 02:47 → N04A 01-11 20:27
PROVIDERS: ADMIT Family Medicine; ATTEND Family Medicine
PROC: 5A09357 Assistance with Respiratory Ventilation, Less than 24 Consecutive Hours, Continuous Positive Airway Pressure (ICD-10-PCS; principal; 2017-01-10)
DX: A41.51 Sepsis due to Escherichia coli [E. coli] (principal); J96.01 Acute respiratory failure with hypoxia; N17.9 Acute kidney failure, unspecified; J15.5 Pneumonia due to Escherichia coli; E87.3 Alkalosis; J44.0 Chronic obstructive pulmonary disease with (acute) lower respiratory infection; J44.1 Chronic obstructive pulmonary disease with (acute) exacerbation; M19.90 Unspecified osteoarthritis, unspecified site; F41.9 Anxiety disorder, unspecified; F32.9 Major depressive disorder, single episode, unspecified; I10 Essential (primary) hypertension; G89.29 Other chronic pain; M25.552 Pain in left hip; F17.210 Nicotine dependence, cigarettes, uncomplicated; Z66 Do not resuscitate; Y95 Nosocomial condition; D64.9 Anemia, unspecified; N89.8 Other specified noninflammatory disorders of vagina; Z87.01 Personal history of pneumonia (recurrent); Z99.81 Dependence on supplemental oxygen
CPT/HCPCS: 36600; 71010; 71020; 71250; 76937; 80048; 80053; 81001; 82550; 82805; 82948; 83605; 83880; 84484; 85007; 85025; 85027; 85610; 85730; 87015; 87040; 87070; 87077; 87102; 87116; 87186; 87205; 87206; 87449; 87556; 87798; 87804; 93005; 94640; 94664; C9113; J0456; J0692; J0696; J1644; J1956; J2270; J2543; J2930; J3370; J3475; J7030; J7050; J7608; J7613; J7644